=== PATIENT | female | born 1955 | race Caucasian/White ===

== ENCOUNTER 2020-06-08 10:18 | Emergency (ER) | payer SELFPAY ==
--- NOTE | 2020-06-08 10:39 | ED.SKABFB ---
HPI - Skin/Abscess/Foreign Bdy General Chief complaint: Skin/Abscess/Foreign Body Stated complaint: left leg ulcer infection Time Seen by Provider: 06/08/20 10:35 Source: patient and RN notes reviewed Mode of arrival: ambulatory Limitations: no limitations History of Present Illness HPI narrative: 65 yo female presents to [facility] care with C/O of a left lower leg chronic ulcer that she states is infected. Has a HX of issues with this site for about 30 years but over the last 2 months has become worse with 2 open area. Increased warmth, redness and drainage. Reports that she is had skin grafts that were rejected, and in the hyperbaric chamber. Has moved here in the last couple of years from [facility]. Has not establish care for wound care since arriving here. Dr. Lucas with [facility], primary care provider. Reports that she was referred to vascular however did not follow-up HX of Diabetes and vascular issues. Daughter reports that patient is diabetic and has had issues with venous stasis ulcers in the past Related Data Home Medications Medication Instructions Recorded Confirmed amlodipine 10 mg PO DAILY 06/08/20 06/08/20 escitalopram oxalate 20 mg PO DAILY 06/08/20 06/08/20 glipizide 10 mg PO BID 06/08/20 06/08/20 lansoprazole 15 mg PO DAILY 06/08/20 06/08/20 propranolol BID 06/08/20 simvastatin 40 mg PO DAILY 06/08/20 06/08/20 triamterene-hydrochlorothiazid 1 cap PO DAILY 06/08/20 06/08/20 warfarin 6 mg PO DAILY 06/08/20 06/08/20 Allergies Allergy/AdvReac Type Severity Reaction Status Date / Time adhesive tape Allergy Intermediate BLISTERS Verified 06/08/20 10:48 latex Allergy Intermediate RASH Verified 06/08/20 10:48 Penicillins Allergy Intermediate RASH Verified 06/08/20 10:48 feathers Allergy Mild SWELLING Verified 06/08/20 10:48 paraben Allergy Unknown Unknown Verified 06/08/20 10:48 ANTIBIOTIC OINTMENT Allergy Intermediate BLISTERS Uncoded 06/08/20 10:48 PRESERVATIVES Allergy Mild RASH Uncoded 06/08/20 10:48 Review of Systems Review of Systems: Narrative: CONSTITUTIONAL: Denies fever, chills, or sweats. CARDIOVASCULAR: Denies chest pain, palpitations, or edema. RESPIRATORY: Denies cough or dyspnea. GASTROINTESTINAL: Denies abdominal pain, nausea, vomiting, or diarrhea. GENITOURINARY: Denies dysuria or hematuria. SKIN: Denies rash or itching. Red, increased warmth to the left medial aspect lower leg. MUSCULOSKELETAL: Denies back pain, or myalgia. Left medial aspect ankle pain. NEUROLOGIC: Denies headache, numbness, or weakness. PSYCHIATRIC: Denies anxiety or depression. All other systems reviewed are negative, except as documented in HPI. [facility] Past Medical History Medical History (Updated 06/08/20 @ 11:50 by Quita Mg) Diabetes High cholesterol Skin graft (allograft) (autograft) failure Venous stasis ulcers Comments At the time of my signature, I reviewed and agree with the nursing past medical, surgical, social, and family history. There is no relevant family history pertinent to the patient complaint. Exam Narrative: Exam Narrative: GENERAL: This is a well-nourished, well-developed patient, in no apparent distress. Patient with memory problems, poor historian. HEAD: normocephalic, atraumatic. NECK: Neck supple, non-tender without lymphadenopathy, masses or thyromegaly. CARDIOVASCULAR: Regular rate and rhythm without murmurs, gallops, or rubs. RESPIRATORY: Clear to auscultation. Breath sounds equal bilaterally. No wheezes, rales, or rhonchi. GASTROINTESTINAL: Abdomen soft, non-tender, nondistended. SKIN: warm. Redness extends 16 x 10 cm. To open areas with exudate. NEURO: awake, alert, and oriented to person, place and time. There were no obvious focal neurologic abnormalities. EXTREMITIES: No clubbing, cyanosis, or edema. Tenderness to the ankle. 16 x 10 area left ankle. Infection noted. Hot to touch. Pulse and pedal +1. Patient reports sensation al
[2020-06-08 10:48] VITALS: BP 136/75; PULSE 67; RESP 18; TEMP 37.1; O2SAT 97
[2020-06-08 10:48] LABS: Glucose Point of Care 163 (65-105)
== END 2020-06-08 11:30 | disposition short-term general hospital (02) ==
PROVIDERS: Emergency Provider Nurse Practitioner; PCP Family Medicine
DX: I83.023 Varicose veins of left lower extremity with ulcer of ankle (principal); L97.329 Non-pressure chronic ulcer of left ankle with unspecified severity; E11.622 Type 2 diabetes mellitus with other skin ulcer; Z79.84 Long term (current) use of oral hypoglycemic drugs; L03.116 Cellulitis of left lower limb; E78.00 Pure hypercholesterolemia, unspecified
CPT/HCPCS: 82948; 99213; G0463

== ENCOUNTER 2021-09-23 13:08 | Outpatient (CLI) | payer OTHER, SELFPAY ==
--- NOTE | ~2021-09-23 | US_ITS ---
EXAMINATION: US arterial duplex LE DATE: 09/23/2021 15:22 INDICATION: Peripheral vascular disease, unspecified TECHNIQUE: Multiple grayscale and Doppler ultrasound images of the arteries of the bilateral lower li mbs were obtained. COMPARISON: None FINDINGS: Small amount of atherosclerotic plaque without evident hemodynamically significant stenosis on graysc gianna imaging throughout the arteries of the right lower limb. There are triphasic waveforms with brisk systolic upstrokes throughout the arteries of the right lower limb. Peak systolic velocities range f rom 183 cm/s at the right common femoral artery and from 139-108 cm/s throughout the remaining arteri es of the right lower limb. Small amount of nonhemodynamically significant atherosclerotic plaque scattered throughout the arteri es of the left lower limb. Peak systolic velocities range from 184 cm/s at the proximal left superfic ial femoral artery to 63 cm/s at the left dorsalis pedis artery. Biphasic waveforms at the left dorsa lis pedis artery with triphasic waveforms of all the more proximal arteries in the left lower limb wi th brisk systolic upstrokes throughout. IMPRESSION: 1. Small amount of nonhemodynamically significant atherosclerotic plaque scattered throughout the art eries of the bilateral lower limbs with brisk systolic upstrokes and biphasic waveforms at the left d orsalis pedis artery and triphasic waveforms throughout the remaining arteries of the bilateral lower limbs. Reviewed, dictated and finalized at location B. IMPRESSION: 1. Small amount of nonhemodynamically significant atherosclerotic plaque scatte red throughout the arteries of the bilateral lower limbs with brisk systolic up strokes and biphasic waveforms at the left dorsalis pedis artery and triphasic waveforms throughout the remaining arteries of the bilateral lower limbs.
--- NOTE | ~2021-09-23 | US_ITS ---
EXAMINATION: US thyroid DATE: 09/23/2021 15:21 INDICATION: Nontoxic goiter, unspecified. TECHNIQUE: Multiple ultrasound images of the thyroid were obtained. COMPARISON: None. FINDINGS: The thyroid is normal in size. Vascularity is normal. In the right thyroid lobe, there is a 14 mm femi id, hypoechoic, [id number] nodule with smooth margin without echogenic foci (TI-RADS TR4). IMPRESSION: 1. Thyroid nodule. Thyroid ultrasound is recommended in one year. Reviewed, dictated and finalized at location A.
== END 2021-09-23 13:09 | disposition home or self-care (01) ==
PROVIDERS: PCP Emergency Medicine; Visit Provider Emergency Medicine
DX: I73.9 Peripheral vascular disease, unspecified (principal); E04.9 Nontoxic goiter, unspecified
CPT/HCPCS: 76536; 93925

== ENCOUNTER 2021-10-28 08:03 | Outpatient (CLI) | payer OTHER, SELFPAY ==
--- NOTE | ~2021-10-28 | XR_ITS ---
MODIFIED ESOPHAGRAM HISTORY: Dysphagia. TECHNIQUE: Modified barium esophagram was performed on 10/28/2021. I administered fluoroscopy and perf ormed the exam with speech pathologist. Patient was seated for lateral fluoroscopic imaging for darryl stion of thin liquids, pudding, solids and quantified amounts, followed by thin liquids in uncontroll ed amounts. This was recorded on tape. A single fluoroscopic spot image was also recorded. The DAP fo r this procedure was [id number] Gycm2. The amount of fluoroscopy time used during this procedure w as minutes. FINDINGS: Oral stage: Adequate function. Pharyngeal stage: There is intermittent laryngeal penetration without aspiration and which elicited a cough reflex. Cervical/esophageal stage: Adequate function. IMPRESSION: Intermittent laryngeal penetration without aspiration. Please correlate with speech path ologist findings and specific feeding recommendations. Reviewed, dictated and finalized at location A. IMPRESSION: Intermittent laryngeal penetration without aspiration. Please jorge elate with speech pathologist findings and specific feeding recommendations.
--- NOTE | 2021-10-28 16:03 | STOPEVAL ---
MODIFIED BARIUM SWALLOW EVALAUTATION: Thank you for referring Anahi Vazquez to [facility]. Attending Provider: Panchito Rosa MD FAX: [phone] Modified Barium Swallow Evaluation Recent Swallowing History Reports Dysphagia Yes: pills and raw vegetables get stuck; I cough a lot History of Dysphagia No Other Factors Impacting Dysphagia None History of Pneumonia No Reported Difficult Consistencies Pills,Solids Intake Method Prior to Swallow Oral Evaluation Diet Prior to Swallow Evaluation Regular, Level 7 Liquid Consistency Prior to Swallow Thin (0) Evaluation Consistency Barium Pill Other Amount with cup drinking water Oral Preparatory Symptoms Within Functional Limits Oral Phase Symptoms Within Functional Limits Pharyngeal Phase Comments pill briefly caught within pharynx but with liquid wash was easily cleared Cervical/Esophageal Symptoms None Solid Consistency Method of Presentation Spoon Oral Preparatory Symptoms None Oral Phase Symptoms None Pharyngeal Phase Symptoms Within Functional Limits Severity of Vallecular Residue Trace - 1-5 % Trace Coating of the Mucosa Severity of Pyriform Sinus Residue None - 0% No Residue 8 Point Laryngeal Penetration-Aspiration Material Does Not Enter Airway Scale Pharyngeal Phase Comments pt independently dry swallows and clears any pharyngeal residual: functional swallow. Cervical/Esophageal Symptoms None Mixed Consistency Method of Presentation Spoon Oral Preparatory Symptoms None Oral Phase Symptoms None Pharyngeal Phase Symptoms None Severity of Vallecular Residue None - 0% No Residue Severity of Pyriform Sinus Residue None - 0% No Residue Pureed Consistency Method of Presentation Spoon Oral Preparatory Symptoms None Oral Phase Symptoms None Pharyngeal Phase Symptoms Within Functional Limits, Reduced Lingual Pressure Severity of Vallecular Residue Trace - 1-5 % Trace Coating of the Mucosa Severity of Pyriform Sinus Residue None - 0% No Residue 8 Point Laryngeal Penetration-Aspiration Material Does Not Enter Airway Scale Pharyngeal Phase Comments pt independently dry swallows and clears any pharyngeal residual: functional swallow. Cervical/Esophageal Symptoms None Thin Uncontrolled 2 Method of Presentation Spoon Oral Preparatory Symptoms None Oral Phase Symptoms None Pharyngeal Phase Symptoms Within Functional Limits Severity of
== END 2021-10-28 08:04 | disposition home or self-care (01) ==
PROVIDERS: PCP Emergency Medicine; Visit Provider Emergency Medicine
DX: T17.308A Unspecified foreign body in larynx causing other injury, initial encounter (principal)
CPT/HCPCS: 92611

== ENCOUNTER 2022-05-03 09:51 | Observation (INO) | payer OTHER, SELFPAY ==
[2022-05-03] VITALS (19 sets, daily range): BP systolic 118–190; BP diastolic 52–158; PULSE 105–128; RESP 19–29; TEMP 36.4–37.3; O2SAT 95–99; BMI 28.8
--- NOTE | ~2022-05-03 | XR_ITS ---
EXAMINATION: XR chest 1V portable DATE: 05/03/2022 10:52 INDICATION: Shortness of breath. Nausea and vomiting. Generalized chest pain. TECHNIQUE: A single frontal view of the chest was obtained. COMPARISON: Chest 2 views 03/10/2017 FINDINGS: There is mild atelectasis at the lung bases. No pleural effusion or pneumothorax. The heart size is normal. IMPRESSION: 1. Mild atelectasis at the lung bases. Reviewed, dictated and finalized at location A. TENDER
--- NOTE | ~2022-05-03 | CT_ITS ---
EXAMINATION: CTA chest abdomen pelvis DATE: 05/03/2022 11:51 INDICATION: Chest pain radiating to the arm and neck. TECHNIQUE: Computed tomographic angiography (CTA) of the chest, abdomen, and pelvis was performed wit h 100 mL Omnipaque-350 intravenous contrast. Automated exposure control and iterative reconstruction technique were employed. The dose-length product was 1096.51 mGy-cm. Maximum intensity projection 3D- reconstructions of the aorta and other arteries were constructed by the technologist on a separate wo rkstation. COMPARISON: None. FINDINGS: CHEST CTA: There is mild scarring at the lung apices. There is mild dependent atelectasis bilaterally. There are airspace and groundglass opacities in mediobasal and posterobasal segments of right lower lobe, cons istent with pneumonia. No pleural effusion. The heart size is normal. There are coronary artery calci fications. No pericardial effusion. There are bilateral breast implants. There is no pulmonary embolu s. There is mild aortic atherosclerosis. No aneurysm or dissection. There is mild thoracic spondylosi s. ABDOMEN AND PELVIS CTA: The liver, gallbladder, spleen, pancreas, adrenal glands, and right kidney are normal. There is a 2.0 cm cyst in left kidney. There is diverticulosis of the colon without evidence of diverticulitis. The re are no dilated loops of bowel. The appendix is normal. There is aortic atherosclerosis. No aneurys m or dissection. There is no significant stenosis of celiac axis, superior mesenteric artery, or the renal arteries. There are no pathologically enlarged lymph nodes. There is no free intraperitoneal fl uid. There is moderate lumbar spondylosis. IMPRESSION: 1. Aortic atherosclerosis. No aneurysm or dissection. 2. Right lower lobe pneumonia. Reviewed, dictated and finalized at location A. ER DIE CUTTING MACHINE OPERATOR
--- NOTE | 2022-05-03 09:52 | ECG_ITS ---
Measurements Intervals [place] Rate: 119 P: 68 AR: 136 QRS: -40 QRSD: 90 T: 17 QT: 359 QTc: 507 Interpretive Statements SINUS TACHYCARDIA LEFT AXIS DEVIATION POSSIBLE LEFT ATRIAL ENLARGEMENT INCOMPLETE RIGHT BUNDLE BRANCH BLOCK BORDERLINE R WAVE PROGRESSION, ANTERIOR LEADS BORDERLINE ST ABNORMALITY- DIFFUSE LEADS BASELINE WANDER- III, AVF ABNORMAL ECG NO PREVIOUS ECG AVAILABLE FOR COMPARISON Electronically Signed On 05-04-2022 7:28:46 [employer] by Terry Humphreys D.O.
[2022-05-03] MEDS: ASPIRIN 81 MG CHEWABLE TABLET 324 MG PO (10:41)
--- NOTE | 2022-05-03 10:41 | ECG_ITS ---
Measurements Intervals [place] Rate: 120 P: 72 IN: 147 QRS: -9 QRSD: 85 T: 32 QT: 332 QTc: 469 Interpretive Statements SINUS TACHYCARDIA INCOMPLETE RIGHT BUNDLE BRANCH BLOCK LOW QRS VOLTAGE IN PRECORDIAL LEADS BORDERLINE R WAVE PROGRESSION, ANTERIOR LEADS BORDERLINE ST-T WAVE ABNORMALITY- DIFFUSE LEADS BASELINE ARTIFACT- I, II, III, AVR, AVL, V1 ABNORMAL ECG COMPARED TO ECG 05/03/2022 09:57:09 NO SIGNIFICANT CHANGES Electronically Signed On 05-04-2022 15:15:53 B[employer]K HOUSE WORKER by Terry Humphreys D.O.
[2022-05-03 10:51] LABS: Influenza A QL RT-PCR Negative (Negative); Influenza B QL RT-PCR Negative (Negative); RSV RNA, RT-PCR Negative (Negative); SARS-CoV-2 RNA PCR Negative
[2022-05-03 11:04] LABS: Basophils Absolute Auto 0.1 K/mm3 (0.0-0.1); Basophils Percent Auto 0.4 % (0.2-1.2); Eosinophils Percent Auto 0.1 % (0-4.4); Hematocrit 42.4 % (37.0-47.0); Hemoglobin 14.7 g/dL (12.0-15.0); Immature Granulocyte Absolute 0.12 K/mm3 (0.00-0.031); Immature Granulocyte Percent A 0.7 % (0-0.5); Lymphocytes Absolute Auto 1.22 K/mm3 (0.9-3.2); Lymphocytes Percent Auto 7.4 % (18.3-44.2); Mean Corpuscular HGB Conc 34.7 g/dl (32-36); Mean Corpuscular Hemoglobin 31.3 pg (26-34); Mean Corpuscular Volume 90.2 fl (80-100); Mean Platelet Volume 10.3 fl (7.4-10.4); Monocytes Absolute Auto 0.8 K/mm3 (0.1-0.6); Monocytes Percent Auto 4.9 % (2.6-8.5); Neutrophils Absolute Auto 14.3 K/mm3 (1.3-6.7); Neutrophils Percent Auto 86.5 % (45.5-73.1); Platelet Count Result 218 k/mm3 (150-375); Red Cell Distribution Width 12.2 % (11.5-14.5); White Blood Count 16.5 K/mm3 (4.5-10.0)
--- NOTE | 2022-05-03 11:05 | ED.GENADULT ---
HPI - General Adult General Chief complaint: Shortness of Breath/Dyspnea Stated complaint: right shoulder pain. SOB Time Seen by Provider: 05/03/22 10:22 History of Present Illness HPI narrative: This is a 67-year-old female presenting ED with chief complaint of pain going to her right shoulder and neck. Started yesterday at 9:00 a.m. and is an achy pain, has 6 7 out 10 intensity and constant. Says she has experienced this before when she has had pneumonia. It is worse with deep breaths. There are no alleviating factors. It is associated with diaphoresis and nausea. She denies fever chills or productive cough. Patient denies sick contacts at home this vaccinated against COVID and flu. Patient has history of [place] in her 40s. She denies numbness tingling or weakness to any extremity. Related Data Home Medications Medication Instructions Recorded Confirmed lansoprazole 15 mg capsule,delayed 15 mg PO DAILY 06/08/20 06/08/20 release propranolol 60 mg tablet BID 06/08/20 simvastatin 40 mg tablet 40 mg PO DAILY 06/08/20 06/08/20 pioglitazone 45 mg tablet (Actos) 45 mg PO DAILY 09/09/21 Allergies Allergy/AdvReac Type Severity Reaction Status Date / Time adhesive tape Allergy Intermediate BLISTERS Verified 05/03/22 10:00 latex Allergy Intermediate RASH Verified 05/03/22 10:00 Penicillins Allergy Intermediate RASH Verified 05/03/22 10:00 feathers Allergy Mild SWELLING Verified 05/03/22 10:00 paraben Allergy Unknown Unknown Verified 05/03/22 10:00 ANTIBIOTIC OINTMENT Allergy Intermediate BLISTERS Uncoded 05/03/22 10:00 PRESERVATIVES Allergy Mild RASH Uncoded 05/03/22 10:00 Review of Systems Review of Systems: CONSTITUTIONAL: Denies night sweats. EYES: No eye pain ENT: Denies rhinorrhea CARDIOVASCULAR: Denies palpitations RESPIRATORY: Denies hemoptysis GASTROINTESTINAL: Denies hematemesis GENITOURINARY: Denies hematuria. SKIN: Denies rash MUSCULOSKELETAL: Denies myalgia. NEUROLOGIC: Denies weakness. PSYCHIATRIC: Denies delusions PMFSH Past Medical History Medical History Diabetes High cholesterol History of hyperbaric oxygen therapy (~1989) Skin graft (allograft) (autograft) failure Venous stasis ulcers Surgical History Surgical History H/O: hysterectomy (~1979) History of skin graft Several skin grafts between 9423-6319 History of tubal ligation (~1976) Family History Family History Father , 91 Diabetes mellitus DVT (deep venous thrombosis) Heart problem Mother , 87 Heart problem Alzheimer disease Brain bleed Sibling , 58 Heart attack Social History Social History (Updated 05/03/22 @ 12:57 by Halie Mora NP) Social History: Patient drinks 4 cups of caffeine daily. 2 c self wid wm Smoking packs per day: 0.5 Smoking cigarettes per day: 10.0 Years smoked: 49 Smoking pack-years: 24.50 Smoking status: Current every day smoker Tobacco type: cigarettes Second hand tobacco smoke exposure: Yes Alcohol intake: current Drinks per week: 1 Alcohol use details: Patient drinks 1 glass of wine per month Substance use: never Substance use type: does not use Additional living arrangements comments: Patient is Gender identity (if verbalized by the patient): Female Exam Narrative: APPEARANCE: Patient appears uncomfortable Head: atraumatic. EYES: EOMI, NOSE: Atraumatic NECK: Trachea midline RESPIRATORY: tachypneic, clear to auscultation bilaterally CARDIOVASCULAR: tachycardic, pulses intact in all extremities, no peripheral edema ABDOMINAL: Non-distended MUSCULOSKELETAl: No obvious deformities NEURO: Alert. Moving 4/4 extremities SKIN:: Warm, dry. Normal color PSYCHIATRIC: Normal affect Course Vital Signs Vital signs: Vital Signs Temperature 99.1
[2022-05-03 11:13] LABS: Lactic Acid Reflex 1.8 mmol/L (0.7-2.0); Partial Thromboplastin Time 25.7 SECONDS (22.3-36.8)
[2022-05-03 11:14] LABS: Prothrombin Time 12.4 Seconds (11.1-14.7)
[2022-05-03 11:15] LABS: Alanine Aminotransferase 25 U/L (6-35); Albumin Level 4.7 g/dL (3.5-5.1); Alkaline Phosphatase 88 U/L (38-126); Anion Gap 9 mmol/L (8-16); Aspartate Amino Transferase 26 U/L (14-36); Bilirubin,Total 0.7 mg/dL (0.2-1.3); Blood Urea Nitrogen 12 mg/dL (7-17); Calcium 9.1 mg/dL (8.4-10.2); Carbon Dioxide 30 mmol/L (22-30); Chloride 96 mmol/L (98-107); Estimated CRCL calculation 64 ml/min; Estimated Glomerular Filt Rate > 60; Glucose 188 mg/dL (65-110); Lipase 59 U/L (23-300); Magnesium 1.6 mg/dL (1.6-2.3); Sodium 135 mmol/L (137-145)
[2022-05-03 11:24] LABS: NT Pro B Type Natriuretic Pept 330 pg/mL (5-100)
[2022-05-03 11:26] LABS: Troponin I < 0.012 ng/mL (0.000-0.034)
[2022-05-03 11:27] LABS: D Dimer 0.52 ug/mL (<0.48); Troponin I < 0.012 ng/mL (0.000-0.034)
[2022-05-03] MEDS: SODIUM CHLORIDE 0.9% IV 1,000 ML 999 ML IV CONT (12:48)
--- NOTE | 2022-05-03 12:54 | PM.IMHP ---
H&P: HPI History of Present Illness Date/Time: 05/03/22 12:54 Chief Complaint: Shortness of breath Narrative: This is a 67-year-old female patient who has a history of hypertension, hyperlipidemia and diabetes. She presented to the emergency room with complaints of pain that goes her right shoulder and neck. The pain started around 9:00 a.m. yesterday. Her pain was 7/10. The pain is worse with deep breaths. This is the same type of pain that she experienced when she had pneumonia. She denied any fever chills. No numbness and tingling. She does have a history of having coronary artery disease with a ID in her 40s. White count 16.5. Potassium is low at 3.0. Blood sugar 196. Last hemoglobin A1c was 01/10/2022 at 6.9. Urinalysis was negative. Influenza A/B and COVID are negative as well as RSV. CT of the abdomen and chest and pelvis was read as aortic atherosclerosis. No aneurysm or dissection. Right lower lobe pneumonia. The patient was given [place] for the pain. She was given IV fluids, aspirin, Rocephin, and azithromycin. The patient is being admitted to observation status on the date of service of 05/03/2022. Review of Systems Review of Systems: See HPI All systems reviewed & are unremarkable except as noted in HPI and below Constitutional: Constitutional: Reports as per HPI and Reports no additional constitutional complaints Eyes: Eyes: Reports as per HPI and Reports no additional eye complaints ENT: Reports system reviewed and no additional complaints, except as documented and Reports Normal hearing present Cardiovascular: Cardiovascular: Reports no additional cardiovascular complaints Respiratory: Respiratory: Reports no additional respiratory complaints and Reports no additional respiratory complaints Gastrointestinal: Gastrointestinal: Reports as per HPI and Reports no additional gastrointestinal complaints Musculoskeletal: Musculoskeletal: Reports no additional musculoskeletal complaints Integumentary/Breasts: Skin/Breast: Reports system reviewed and no additional complaints, except as docu and Reports as per HPI Neurologic: Reports system reviewed and no additional complaints, except as documented, Reports as per HPI and Reports Normal hearing present Psychiatric: Psychiatric: Reports no additional psychiatric complaints and Reports as per HPI Endocrine: Endocrine: Reports no additional endocrine complaints Hematologic/Lymphatic: Hematologic/Lymphatic: Reports no additional hematologic/lymphatic complaints Allergic/Immunologic: Allergic/Immunologic: Reports no additional allergic/immunologic complaints [facility] Past Medical History Medical History (Updated 05/03/22 @ 18:06 by Halie Mora NP) Diabetes High cholesterol History of DVT (deep vein thrombosis) History of hyperbaric oxygen therapy (~1989) Skin graft (allograft) (autograft) failure Venous stasis ulcers Surgical History Surgical History H/O: hysterectomy (~1979) History of skin graft Several skin grafts between 2805-3278 History of tubal ligation (~1976) Family History Family History Father , 91 Diabetes mellitus DVT (deep venous thrombosis) Heart problem Mother , 87 Heart problem Alzheimer disease Brain bleed Sibling , 58 Heart attack Social History Social History (Updated 05/03/22 @ 18:16 by Halie Mora NP) Social History: The patient lives home by herself she is . She has 2 children. Patient drinks 4 cups of caffeine daily. She is retired from [employer]. Her daughter is the durable power deputy prosecuting attorney for healthcare. Code status full code Smoking packs per day: 0.5 Smoking cigarettes per day: 10.0 Years smoked: 49 Smoking pack-years: 24.50 Smoking status: Current every day smoker Tobacco type: cigarettes Second hand tobacco smoke exposure: Yes
[2022-05-03] MEDS: ONDANSETRON INJ 4 MG/2 ML VIAL IV PUSH (13:25)
[2022-05-03] MEDS: hydrALAZINE HCL 20 MG/ML VIAL 10 MG IV PUSH (13:25)
[2022-05-03] MEDS: fentaNYL CITRATE INJ (*CRX) 100 MCG/2 ML VIAL 25 MCG IV PUSH (13:26)
[2022-05-03 13:37] LABS: Add Urine Microscopic? YES; Appearance Urine Clear (Clear); Bilirubin Urine Negative (Negative); Blood Urine Trace-Intact (Negative); Color Urine Yellow (Yellow); Glucose Urine UA Negative (Negative); Ketones Urine Negative (Negative); Leukocyte Esterase Ur Negative LEU/UL (Negative); Nitrate Urine Negative (Negative); Protein Urine Negative (Negative); Specific Grav Ur <= 1.005 (1.001-1.035); Urobilinogen Urine 0.2 mg/dL (<2.0); pH Urine 5.5 (5.0-9.0)
[2022-05-03 13:52] LABS: Mucus Urine Rare /lpf; RBC Urine 0-2 /hpf (0-2); Squamous Epithelial Cell Urine Occasional /hpf (Few); WBC Urine 0-3 /hpf
[2022-05-03 14:13] LABS: Glucose Point of Care 196 mg/dl (65-105)
[2022-05-03] MEDS: SODIUM CHLORIDE 0.9% IV 2,000 ML 999 ML IV CONT (14:22)
--- NOTE | 2022-05-03 15:46 | PC.NURSE ---
This patient, Anahi Vazquez, was admitted to Medical Room 343-01. Patient/family oriented to hospital policies and general routines including ID bracelet, bed and alarms, visiting hours, pain management, procedures, bathroom and other care routines, personal items, smoking policy, room service/diet, and visiting hours. Information on how to activate the Rapid Response Team has been discussed. Patient/Family are encouraged to report perceived risks to care and to ask questions if they do not understand what they are told or what they should do.
[2022-05-03] MEDS: HYDROcodone/acetaminophen (*CRX) 5-325 MG TABLET 1 TAB PO ×2 (17:08→21:36)
[2022-05-03] MEDS: POTASSIUM CHLORIDE 20 MEQ TABLET 40 MEQ PO (17:10)
[2022-05-03] MEDS: glipiZIDE 5 MG TABLET 10 MG PO (19:28)
[2022-05-03] MEDS: SODIUM CHLORIDE 0.9% IV 1,000 ML 100 ML IV CONT (19:28)
[2022-05-03] MEDS: APIXABAN 2.5 MG TABLET PO (19:28)
[2022-05-03] MEDS: IPRATROPIUM BR 0.02% INH SOLN 0.5 MG/2.5 ML VIAL INHALATION (20:09)
[2022-05-03] MEDS: ALBUTEROL SULFATE NEB 2.5 MG/3 ML INH INHALATION (20:09)
[2022-05-03] MEDS: PROPRANOLOL HCL 60 MG CAPSULE CR PO (21:37)
[2022-05-03 21:45] LABS: Glucose Point of Care 151 mg/dl (65-105)
[2022-05-04] VITALS (21 sets, daily range): BP systolic 98–117; BP diastolic 54–59; PULSE 66–110; RESP 18–20; TEMP 36.6–37.2; O2SAT 86–93
[2022-05-04] MEDS: IPRATROPIUM BR 0.02% INH SOLN 0.5 MG/2.5 ML VIAL INHALATION ×4 (02:15→20:16)
[2022-05-04] MEDS: ALBUTEROL SULFATE NEB 2.5 MG/3 ML INH INHALATION ×4 (02:15→20:16)
[2022-05-04] MEDS: HYDROcodone/acetaminophen (*CRX) 7.5-325 MG TABLET 1 TAB PO ×4 (04:54→22:21)
[2022-05-04] MEDS: SODIUM CHLORIDE 0.9% IV 1,000 ML 100 ML IV CONT ×2 (04:55→17:04)
[2022-05-04 06:20] LABS: Basophils Percent Auto 0.2 % (0.2-1.2); Eosinophils Percent Auto 0.1 % (0-4.4); Hematocrit 31.6 % (37.0-47.0); Hemoglobin 10.7 g/dL (12.0-15.0); Immature Granulocyte Absolute 0.13 K/mm3 (0.00-0.031); Immature Granulocyte Percent A 0.7 % (0-0.5); Lymphocytes Absolute Auto 2.78 K/mm3 (0.9-3.2); Lymphocytes Percent Auto 15.5 % (18.3-44.2); Mean Corpuscular HGB Conc 33.9 g/dl (32-36); Mean Corpuscular Hemoglobin 30.7 pg (26-34); Mean Corpuscular Volume 90.8 fl (80-100); Mean Platelet Volume 11.1 fl (7.4-10.4); Monocytes Absolute Auto 1.1 K/mm3 (0.1-0.6); Monocytes Percent Auto 6.1 % (2.6-8.5); Neutrophils Absolute Auto 13.9 K/mm3 (1.3-6.7); Neutrophils Percent Auto 77.4 % (45.5-73.1); Platelet Count Result 172 k/mm3 (150-375); Red Blood Count 3.48 M/mm3 (4.2-5.4); Red Cell Distribution Width 12.5 % (11.5-14.5); White Blood Count 17.9 K/mm3 (4.5-10.0)
[2022-05-04 06:28] LABS: Lactic Acid Reflex 0.8 mmol/L (0.7-2.0)
[2022-05-04 06:37] LABS: Alanine Aminotransferase 16 U/L (6-35); Albumin Level 3.1 g/dL (3.5-5.1); Alkaline Phosphatase 66 U/L (38-126); Anion Gap 6 mmol/L (8-16); Aspartate Amino Transferase 18 U/L (14-36); Bilirubin,Total 0.6 mg/dL (0.2-1.3); Blood Urea Nitrogen 9 mg/dL (7-17); Calcium 7.4 mg/dL (8.4-10.2); Carbon Dioxide 27 mmol/L (22-30); Chloride 102 mmol/L (98-107); Estimated CRCL calculation 81 ml/min; Estimated Glomerular Filt Rate > 60; Glucose 115 mg/dL (65-110); Magnesium 1.6 mg/dL (1.6-2.3); Potassium 2.6 mmol/L (3.4-5.0); Sodium 135 mmol/L (137-145)
[2022-05-04 06:46] LABS: CRP 20.8 mg/dL (<1.0)
[2022-05-04] MEDS: POTASSIUM CHLORIDE 20 MEQ PACKET (FOR LIQUID) 40 MEQ PO (07:05)
[2022-05-04 08:43] LABS: Glucose Point of Care 131 mg/dl (65-105)
[2022-05-04] MEDS: PANTOPRAZOLE 40 MG TABLET PO (09:39)
[2022-05-04] MEDS: PIOGLITAZONE HCL 45 MG TABLET PO (09:39)
[2022-05-04] MEDS: amLODIPine BESYLATE 5 MG TABLET 10 MG PO (09:39)
[2022-05-04] MEDS: DESVENLAFAXINE SUCCINATE 50 MG TAB.ER.24H 100 MG PO (09:39)
[2022-05-04] MEDS: SIMVASTATIN 20 MG TABLET 40 MG PO (09:39)
[2022-05-04] MEDS: glipiZIDE 5 MG TABLET 10 MG PO ×2 (09:40→17:05)
[2022-05-04] MEDS: PROPRANOLOL HCL 60 MG CAPSULE CR PO ×2 (09:40→20:51)
[2022-05-04] MEDS: APIXABAN 2.5 MG TABLET PO ×2 (09:40→17:05)
[2022-05-04] MEDS: POTASSIUM CHLORIDE 20 MEQ TABLET.ER 40 MEQ PO (11:17)
--- NOTE | 2022-05-04 11:23 | PM.IMPN ---
Progress Note: A&P Assessment and Plan (1) Pneumonia: Code(s): J18.9 - Pneumonia, unspecified organism Status: Acute Assessment and Plan: -the patient has mild leukocytosis white count 16.5. -the patient was started on community-acquired pneumonia antibiotic stewardship with azithromycin and Rocephin. -DuoNebs -tailor antibiotic to blood and sputum cultures results. -continue with IV fluids as patient has tachycardia. (2) History of DVT (deep vein thrombosis): Code(s): Z86.718 - Personal history of other venous thrombosis and embolism Status: Acute Assessment and Plan: -continue with Eliquis (3) Depression: Code(s): F32.A - Depression, unspecified Status: Acute Assessment and Plan: - Pristiq is non formulary and she may use from home. (4) HTN (hypertension): Qualifiers: Hypertension type: primary hypertension Qualified Code(s): I10 - Essential (primary) hypertension Code(s): I10 - Essential (primary) hypertension Status: Acute Assessment and Plan: -I am holding her triamterene and hydrochlorothiazide due to her low potassium. -I did give her a dose of hydralazine in the emergency room. -continue with propranolol -continue with amlodipine (5) HLD (hyperlipidemia): Qualifiers: Hyperlipidemia type: mixed hyperlipidemia Qualified Code(s): E78.2 - Mixed hyperlipidemia Code(s): E78.5 - Hyperlipidemia, unspecified Status: Acute Assessment and Plan: -continue simvastatin (6) Diabetes mellitus: Qualifiers: Diabetes mellitus type: type 2 Diabetes mellitus detention insulin use: without intermediate manager use Diabetes mellitus complication status: with skin complications Diabetes mellitus complication detail: with other skin complication Qualified Code(s): E11.628 - Type 2 diabetes mellitus with other skin complications Code(s): E11.9 - Type 2 diabetes mellitus without complications Status: Acute Assessment and Plan: -rybelsus is non formulary she may use from home -Accu-Cheks AC and HS with sliding scale insulin and hypoglycemic protocol. -last A1c was 6.9. -continue with Actos Subjective Date/time seen: 05/04/22 11:23 Breathing better Exam Const: General: cooperative, healthy appearing, comfortable, no acute distress, well developed, alert, awake, Physically active, average body habitus and well nourished Nutritional Appearance: average body habitus and well nourished Orientation/consciousness: oriented to person, oriented to place, oriented to time and patient oriented x3 Limitations: no limitations HENMT: Head: normal to inspection, No palpable skull fracture present, normocephalic, atraumatic and abrasion Ears: hearing grossly normal bilaterally and external ears normal Face/Nose/Sinus: Normal external nose present and Normal nares present Eyes: General: appearance normal, both eyes and all related structures Alignment and Position: alignment normal Periorbital: periorbital findings normal Eyelids: eyelids normal Sclera: sclerae normal Pupils: Equal, round and reactive pupils present EOM: EOMs intact bilaterally Neck: Neck: normal visual inspection, full ROM, no lymphadenopathy, trachea midline and supple Chest: Chest palpation & inspection: normal inspection of the chest Resp: Effort & Inspection: normal respiratory effort Auscultation: clear to auscultation bilaterally and diminished lung sounds on the right in the lower lung cohen Cardio: Palpation: normal PMI Rate: regular rate and tachycardic Rhythm: regular rhythm Heart sounds: S1 normal heart sound present and S2 normal heart sound present Peripheral pulses: Peripheral pulses 2+ throughout GI: Inspection: normal to inspection Auscultation: normal bowel sounds Rectal Exam: deferred : General: Yes no CVA tenderness Back/Spine/Pelvis: Back: no CVA tenderness Cervical Spine: cervical ROM normal Thorac
[2022-05-04 12:28] LABS: Potassium 3.1 mmol/L (3.4-5.0)
[2022-05-04 12:39] LABS: Glucose Point of Care 127 mg/dl (65-105)
[2022-05-04 16:37] LABS: Potassium 3.5 mmol/L (3.4-5.0)
[2022-05-04 17:36] LABS: Glucose Point of Care 133 mg/dl (65-105)
[2022-05-04 20:59] LABS: Glucose Point of Care 89 mg/dl (65-105)
[2022-05-05] VITALS (17 sets, daily range): BP systolic 117; BP diastolic 49; PULSE 63–88; RESP 16–22; TEMP 36.6; O2SAT 87–94
[2022-05-05] MEDS: IPRATROPIUM BR 0.02% INH SOLN 0.5 MG/2.5 ML VIAL INHALATION ×3 (01:57→15:50)
[2022-05-05] MEDS: ALBUTEROL SULFATE NEB 2.5 MG/3 ML INH INHALATION ×3 (01:57→15:50)
[2022-05-05] MEDS: SODIUM CHLORIDE 0.9% IV 1,000 ML 100 ML IV CONT (04:20)
[2022-05-05] MEDS: ONDANSETRON INJ 4 MG/2 ML VIAL IV PUSH (04:37)
[2022-05-05] MEDS: HYDROcodone/acetaminophen (*CRX) 7.5-325 MG TABLET 1 TAB PO ×2 (05:30→11:48)
[2022-05-05 06:07] LABS: Anion Gap 3 mmol/L (8-16); Blood Urea Nitrogen 9 mg/dL (7-17); Calcium 7.6 mg/dL (8.4-10.2); Carbon Dioxide 23 mmol/L (22-30); Chloride 103 mmol/L (98-107); Estimated CRCL calculation 93 ml/min; Estimated Glomerular Filt Rate > 60; Glucose 115 mg/dL (65-110); Potassium 3.5 mmol/L (3.4-5.0); Sodium 129 mmol/L (137-145)
[2022-05-05] MEDS: APIXABAN 2.5 MG TABLET PO (08:27)
[2022-05-05] MEDS: PANTOPRAZOLE 40 MG TABLET PO (08:27)
[2022-05-05] MEDS: glipiZIDE 5 MG TABLET 10 MG PO (08:27)
[2022-05-05] MEDS: PROPRANOLOL HCL 60 MG CAPSULE CR PO (08:27)
[2022-05-05] MEDS: amLODIPine BESYLATE 5 MG TABLET 10 MG PO (08:27)
[2022-05-05] MEDS: SIMVASTATIN 20 MG TABLET 40 MG PO (08:27)
[2022-05-05] MEDS: PIOGLITAZONE HCL 45 MG TABLET PO (08:27)
[2022-05-05] MEDS: DESVENLAFAXINE SUCCINATE 50 MG TAB.ER.24H 100 MG PO (08:27)
[2022-05-05] MEDS: POTASSIUM CHLORIDE 20 MEQ TABLET.ER 40 MEQ PO (08:27)
[2022-05-05 08:41] LABS: Glucose Point of Care 137 mg/dl (65-105)
[2022-05-05 08:51] LABS: Basophils Absolute Auto 0.1 K/mm3 (0.0-0.1); Basophils Percent Auto 0.5 % (0.2-1.2); Eosinophils Absolute Auto 0.1 K/mm3 (0-0.3); Eosinophils Percent Auto 1.1 % (0-4.4); Hematocrit 34.6 % (37.0-47.0); Hemoglobin 10.5 g/dL (12.0-15.0); Immature Granulocyte Absolute 0.09 K/mm3 (0.00-0.031); Immature Granulocyte Percent A 0.9 % (0-0.5); Lymphocytes Absolute Auto 1.96 K/mm3 (0.9-3.2); Lymphocytes Percent Auto 20.4 % (18.3-44.2); Mean Corpuscular HGB Conc 30.3 g/dl (32-36); Mean Corpuscular Hemoglobin 30.9 pg (26-34); Mean Corpuscular Volume 101.8 fl (80-100); Mean Platelet Volume 10.7 fl (7.4-10.4); Monocytes Absolute Auto 0.5 K/mm3 (0.1-0.6); Neutrophils Absolute Auto 6.9 K/mm3 (1.3-6.7); Neutrophils Percent Auto 72.1 % (45.5-73.1); Platelet Count Result 150 k/mm3 (150-375); Red Cell Distribution Width 13.1 % (11.5-14.5); White Blood Count 9.6 K/mm3 (4.5-10.0)
--- NOTE | 2022-05-05 12:36 | PM.DS ---
DS: Admitting Diagnosis Discharge Date May 05, 2022 Admitting Diagnosis Pneumonia DS: Discharge Diagnosis Discharge Diagnosis (1) Pneumonia: Code(s): J18.9 - Pneumonia, unspecified organism Status: Acute Assessment and Plan: -the patient has mild leukocytosis white count 16.5. -the patient was started on community-acquired pneumonia antibiotic stewardship with azithromycin and Rocephin. -DuoNebs -tailor antibiotic to blood and sputum cultures results. -continue with IV fluids as patient has tachycardia. (2) History of DVT (deep vein thrombosis): Code(s): Z86.718 - Personal history of other venous thrombosis and embolism Status: Acute Assessment and Plan: -continue with Eliquis (3) Depression: Code(s): F32.A - Depression, unspecified Status: Acute Assessment and Plan: - Pristiq is non formulary and she may use from home. (4) HTN (hypertension): Qualifiers: Hypertension type: primary hypertension Qualified Code(s): I10 - Essential (primary) hypertension Code(s): I10 - Essential (primary) hypertension Status: Acute Assessment and Plan: -I am holding her triamterene and hydrochlorothiazide due to her low potassium. -I did give her a dose of hydralazine in the emergency room. -continue with propranolol -continue with amlodipine (5) HLD (hyperlipidemia): Qualifiers: Hyperlipidemia type: mixed hyperlipidemia Qualified Code(s): E78.2 - Mixed hyperlipidemia Code(s): E78.5 - Hyperlipidemia, unspecified Status: Acute Assessment and Plan: -continue simvastatin (6) Diabetes mellitus: Qualifiers: Diabetes mellitus type: type 2 Diabetes mellitus intermediate card tender insulin use: without intermediate card tender use Diabetes mellitus complication status: with skin complications Diabetes mellitus complication detail: with other skin complication Qualified Code(s): E11.628 - Type 2 diabetes mellitus with other skin complications Code(s): E11.9 - Type 2 diabetes mellitus without complications Status: Acute Assessment and Plan: -rybelsus is non formulary she may use from home -Accu-Cheks AC and HS with sliding scale insulin and hypoglycemic protocol. -last A1c was 6.9. -continue with Actos DS: Summary Hospital Course Hospital Course: 67-year-old female came out pneumonia. Started IV antibiotics did exceptionally well. Will have her evaluated for home oxygen she likely has some underlying sleep apnea. She is also a smoker. Recommended so smoking cessation. Five more days of oral antibiotics on discharge Time Spent with Patient Time attestation: Total time spent providing and/or coordinating discharge services: Exam Const: General: cooperative, healthy appearing, comfortable, no acute distress, well developed, alert, awake, Physically active, average body habitus and well nourished Nutritional Appearance: average body habitus and well nourished Orientation/consciousness: oriented to person, oriented to place, oriented to time and patient oriented x3 Limitations: no limitations HENMT: Head: normal to inspection, No palpable skull fracture present, normocephalic, atraumatic and abrasion Ears: hearing grossly normal bilaterally and external ears normal Face/Nose/Sinus: Normal external nose present and Normal nares present Eyes: General: appearance normal, both eyes and all related structures Alignment and Position: alignment normal Periorbital: periorbital findings normal Eyelids: eyelids normal Sclera: sclerae normal Pupils: Equal, round and reactive pupils present EOM: EOMs intact bilaterally Neck: Neck: normal visual inspection, full ROM, no lymphadenopathy, trachea midline and supple Chest: Chest palpation & inspection: normal inspection of the chest Resp: Effort & Inspection: normal respiratory effort Auscultation: clear to auscultation bilaterally and diminished lung sounds on the rig
[2022-05-05 13:09] LABS: Glucose Point of Care 126 mg/dl (65-105)
--- NOTE | 2022-05-05 16:05 | PCRCNOTE ---
2lpm o2 with activity needed. set pt up with iv resp care.
--- NOTE | 2022-05-05 16:16 | HOMEO2EVAL ---
Evaluation was performed at [facility] Home Oxygen Evaluation RC: Home Oxygen (O2) Evaluation Start: 05/05/22 12:37 Freq: ONCE Status: Active Protocol: RPE Activity Type Activity Date Activity User E-sign Co-sign Detail Recorded Client Recorded Date Recorded By Document 05/05/22 15:44 MDW [email or web address] 05/05/22 16:16 MDW Document 05/05/22 15:46 MDW [email or web address] 05/05/22 16:16 MDW Document 05/05/22 15:48 MDW [email or web address] 05/05/22 16:16 MDW Document 05/05/22 15:50 MDW [email or web address] 05/05/22 16:16 MDW 05/05/22 05/05/22 05/05/22 15:44 15:46 15:48 Home O2 Evaluation [Oxygen] -Test Phase Resting Exercise Exercise -Oxygen Delivery Room Air Room Air Nasal Cannula -Oxygen Flow Rate (L/min) 1 [Pulse Oximetry] -Pulse Oximetry (90-100 %) 94 87 L 88 L [Pulse Rate] -Pulse Rate (60-100 beats/min) 70 75 78 [Evaluation] -Activity Tolerance Good [Exercise] -Ambulation Distance (feet) -Ambulation Distance (meters) [Comments] -Home Oxygen Evaluation Comments [Charges] -Treatment Charges O2 Evaluation - Inpatient 05/05/22 15:50 Home O2 Evaluation [Oxygen] -Test Phase Exercise -Oxygen Delivery Nasal Cannula -Oxygen Flow Rate (L/min) 2 [Pulse Oximetry] -Pulse Oximetry (90-100 %) 94 [Pulse Rate] -Pulse Rate (60-100 beats/min) 80 [Evaluation] -Activity Tolerance Good [Exercise] -Ambulation Distance (feet) 100 -Ambulation Distance (meters) 30.47 [Comments] -Home Oxygen Evaluation Comments 2L per min with activity [Charges] -Treatment Charges
== END 2022-05-05 16:20 | disposition home or self-care (01) ==
LOC: ANHED 13:20 → ANH3MED 05-04 16:58
PROVIDERS: Nurse Practitioner; Student in an Organized Health Care Education/Training Program; Admitting Provider Internal Medicine; Emergency Provider Emergency Medicine; PCP Emergency Medicine; Visit Provider Chiropractor
DX: J18.9 Pneumonia, unspecified organism (principal); Z86.718 Personal history of other venous thrombosis and embolism; F32.A Depression, unspecified; I10 Essential (primary) hypertension; E11.628 Type 2 diabetes mellitus with other skin complications; E78.5 Hyperlipidemia, unspecified; M25.511 Pain in right shoulder; M54.2 Cervicalgia; R61 Generalized hyperhidrosis; R05.9 Cough, unspecified; I25.2 Old myocardial infarction; D72.829 Elevated white blood cell count, unspecified; R06.09 Other forms of dyspnea; Z20.822 Contact with and (suspected) exposure to COVID-19; E87.6 Hypokalemia; E78.00 Pure hypercholesterolemia, unspecified; J98.11 Atelectasis; R94.31 Abnormal electrocardiogram [ECG] [EKG]; I70.0 Atherosclerosis of aorta; I25.10 Atherosclerotic heart disease of native coronary artery without angina pectoris; F17.210 Nicotine dependence, cigarettes, uncomplicated; F10.90 Alcohol use, unspecified, uncomplicated; Z79.01 Long term (current) use of anticoagulants; Z79.84 Long term (current) use of oral hypoglycemic drugs; Z79.899 Other long term (current) drug therapy; Z83.3 Family history of diabetes mellitus; Z82.49 Family history of ischemic heart disease and other diseases of the circulatory system
CPT/HCPCS: 36415; 71045; 71275; 74174; 80048; 80053; 81001; 82948; 83605; 83690; 83735; 83880; 84132; 84443; 84484; 85025; 85380; 85610; 85730; 86140; 87040; 87070; 87205; 87637; 93005; 94618; 94640; 96365; 96367; 96375; 96376; 99285; A9270; G0378; J0360; J0456; J0696; J2405; J3010; J7030; Q9967

== ENCOUNTER 2022-05-19 19:21 | Inpatient (IN) | payer OTHER, SELFPAY ==
--- NOTE | ~2022-05-19 | CT_ITS ---
Non-contrast Head CT History: Dizziness Technique: Axial non-contrast imaging of the brain was performed. Dose reduction technique was used on this scan by utilizing automated exposure control and iterative reconstruction technique. The dose -length product (DLP) was 605.33 mGy-cm. Findings: There is no evidence of intracranial hemorrhage, mass lesion, or acute infarct. Brain par enchyma appears normal. The ventricles and subarachnoid spaces are normal in size. The calvarium ap pears normal. The visualized paranasal sinuses and mastoid air cells are clear. Impression: No significant abnormality seen. Reviewed, dictated and finalized at location . ON GRADER Impression: No significant abnormality seen.
--- NOTE | ~2022-05-19 | XR_ITS ---
EXAMINATION: XR chest 2V Exam Date/Time: 05/19/2022 20:30 PLACEMENT COORDINATOR HISTORY: RECENTLY TREATED FOR PNEUMONIA, DIZZY, SOB, O2 AT 80% Comparison: 05/03/2022. RESULT: Lines, tubes, and devices: None. Lungs and pleura: Clear. Cardiomediastinal silhouette: Stable. Other: No acute osseous or upper abdominal finding. IMPRESSION: No acute cardiopulmonary process. Reviewed, dictated and finalized at location K. EMENT COORDINATOR
[2022-05-19 19:28] VITALS: BP 117/67; PULSE 103; RESP 16; TEMP 36.3; O2SAT 100
[2022-05-19 19:33] VITALS: BP 94/76; PULSE 111
--- NOTE | 2022-05-19 19:33 | ECG_ITS ---
Measurements Intervals [place] Rate: 100 P: 76 [place]: 124 QRS: 79 QRSD: 89 T: 49 QT: 364 QTc: 471 Interpretive Statements SINUS TACHYCARDIA POSSIBLE LEFT ATRIAL ENLARGEMENT BORDERLINE ST ABNORMALITY- ANTEROLATERAL LEADS BASELINE ARTIFACT- V3 ABNORMAL ECG COMPARED TO ECG 05/03/2022 10:41:25 HEART RATE HAS DECREASED Electronically Signed On 05-19-2022 20:35:16 DIRECTOR INFORMATION SECURITY by Terry Humphreys D.O.
[2022-05-19 19:47] LABS: Basophils Absolute Auto 0.1 K/mm3 (0.0-0.1); Basophils Percent Auto 0.7 % (0.2-1.2); Eosinophils Absolute Auto 0.1 K/mm3 (0-0.3); Eosinophils Percent Auto 0.8 % (0-4.4); Hematocrit 43.2 % (37.0-47.0); Hemoglobin 14.8 g/dL (12.0-15.0); Immature Granulocyte Absolute 0.02 K/mm3 (0.00-0.031); Immature Granulocyte Percent A 0.3 % (0-0.5); Lymphocytes Absolute Auto 2.23 K/mm3 (0.9-3.2); Lymphocytes Percent Auto 30.2 % (18.3-44.2); Mean Corpuscular HGB Conc 34.3 g/dl (32-36); Mean Corpuscular Hemoglobin 30.7 pg (26-34); Mean Corpuscular Volume 89.6 fl (80-100); Mean Platelet Volume 9.9 fl (7.4-10.4); Monocytes Absolute Auto 0.6 K/mm3 (0.1-0.6); Monocytes Percent Auto 8.3 % (2.6-8.5); Neutrophils Absolute Auto 4.4 K/mm3 (1.3-6.7); Neutrophils Percent Auto 59.7 % (45.5-73.1); Platelet Count Result 297 k/mm3 (150-375); Red Blood Count 4.82 M/mm3 (4.2-5.4); Red Cell Distribution Width 11.9 % (11.5-14.5); White Blood Count 7.4 K/mm3 (4.5-10.0)
[2022-05-19 19:58] LABS: Alanine Aminotransferase 17 U/L (6-35); Albumin Level 4.5 g/dL (3.5-5.1); Alkaline Phosphatase 75 U/L (38-126); Anion Gap 12 mmol/L (8-16); Aspartate Amino Transferase 24 U/L (14-36); Bilirubin,Total 0.6 mg/dL (0.2-1.3); Blood Urea Nitrogen 12 mg/dL (7-17); Calcium 9.4 mg/dL (8.4-10.2); Carbon Dioxide 30 mmol/L (22-30); Chloride 88 mmol/L (98-107); Estimated CRCL calculation 40 ml/min; Estimated Glomerular Filt Rate 41; Glucose 116 mg/dL (65-110); Lipase 84 U/L (23-300); Potassium 3.1 mmol/L (3.4-5.0); Sodium 130 mmol/L (137-145)
[2022-05-19 20:00] LABS: INR 1.2; Prothrombin Time 14.3 Seconds (11.1-14.7)
[2022-05-19 20:01] LABS: Partial Thromboplastin Time 29.1 SECONDS (22.3-36.8)
[2022-05-19 20:09] LABS: Troponin I < 0.012 ng/mL (0.000-0.034)
[2022-05-20] VITALS (10 sets, daily range): BP systolic 112–151; BP diastolic 56–86; PULSE 89–107; RESP 14–24; TEMP 35.6–37.2; O2SAT 96–100; BMI 27.8
--- NOTE | 2022-05-20 | ECHO_ITS ---
Patient Info Name: Anahi Vazquez Age: 67 years : 1955 Gender: Female Ht: 69 in Wt: 188 lbs BSA: 2.05 m2 HR: 98 bpm BP: 135 / 58 mmHg Heart Rhythm: Sinus Rhythm Technical Quality: Fair Exam Date: 05/20/2022 1:37 PM Exam Location: [facility] Pulmonary Patient Status: Inpatient Admit Date: 05/20/2022 Staff Ordering Physician: Betzaida Zepeda APRN Radio Journalist: Melia Bah RDCS Attending Provider: Pako Nicole MD Referring Physician: Katelyn MATTSON; Exam Type: CA echo dop bubble study w con Study Info Indications R55 - Syncope and collapse Complete two-dimentional, color flow and Doppler transthoracic echocardiogram is performed with agitated saline and with contrast to opacify the left ventricle and to improve the delineation of the left ventricle endocardial borders. Contrast/Agitated Saline Contrast/Ag. Saline: Agitated Saline Amount: 20.00 ml Administered By: Jt Pool RDCS Existing IV Access: Yes IV Access Condition: patent with no signs of infiltration Contrast/Ag. Saline: Definity Amount: 2.00 ml Administered By: Melia Bah RDCS Existing IV Access: Yes IV Access Condition: patent with no signs of infiltration Summary 1. Left ventricular chamber dimension is normal. 2. Left ventricular systolic function is hyperdynamic, estimated at >70%. 3. There is mildly increased left ventricular wall thickness. 4. The left ventricular diastolic function is grade I diastolic dysfunction. 5. Right ventricular chamber dimension is normal. 6. Right ventricular systolic function is normal. 7. Intact interatrial septum visualized by color flow and agitated saline imaging. Negative bubble study. 8. There is mild tricuspid valve regurgitation. 9. There is small anterior pericardial effusion. Left Ventricle Left ventricular chamber dimension is normal. Left ventricular systolic function is hyperdynamic, estimated at >70%. There is mildly increased left ventricular wall thickness. The left ventricular diastolic function is grade I diastolic dysfunction. Right Ventricle Right ventricular chamber dimension is normal. Right ventricular systolic function is normal. Left Atria Left atrial chamber dimension is normal. Right Atria Right atrial chamber dimension is normal. Atrial Septum Intact interatrial septum visualized by color flow and agitated saline imaging. Negative bubble study. Aortic Valve The aortic valve is probable trileaflet. There is no aortic valve stenosis. There is no aortic valve regurgitation. There is mild aortic valve calcification. Pulmonic Valve The pulmonic valve is not well visualized. Mitral Valve There is no mitral valve stenosis. There is trace mitral valve regurgitation. Tricuspid Valve There is mild tricuspid valve regurgitation. Pericardium/Pleural There is small anterior pericardial effusion. Inferior Vena Cava Normal inferior vena cava with >50% collapse upon inspiration consistent with normal right atrial pressure. Aorta The aortic root size at the sinus of Valsalva is normal. Left Ventricular Outflow Tract Name Value Normal LVOT 2D
[2022-05-20] MEDS: SODIUM CHLORIDE 0.9% IV 1,000 ML 125 ML IV CONT ×2 (01:30→18:00)
[2022-05-20] MEDS: SODIUM CHLORIDE 0.9% IV 1,000 ML 999 ML IV CONT (01:30)
--- NOTE | 2022-05-20 02:28 | ED.GENADULT ---
HPI - General Adult General Chief complaint: Dizziness Stated complaint: dizziness - recent diagnosed with PNA dc on O2 Time Seen by Provider: 05/20/22 00:58 History of Present Illness HPI narrative: Patient is a 67-year-old female who presents to the ER with dizziness. Going on for the last day. Worse with going from sitting to standing. Patient recently admitted for pneumonia and discharged home on 2 L of oxygen. She is supposed to do a 6-minute walk test with pulmonology but cannot get an appointment till September. She reports that she has no new cough or fevers or chills or sweats. She reports poor oral intake over the last 2 weeks since being discharged. She has poor energy. No new medication changes. Related Data Home Medications Medication Instructions Recorded Confirmed lansoprazole 15 mg capsule,delayed 15 mg PO DAILY 06/08/20 05/03/22 release propranolol 60 mg tablet 60 mg PO BID 06/08/20 05/03/22 simvastatin 40 mg tablet 40 mg PO DAILY 06/08/20 05/03/22 pioglitazone 45 mg tablet (Actos) 45 mg PO DAILY 09/09/21 05/03/22 Allergies Allergy/AdvReac Type Severity Reaction Status Date / Time adhesive tape Allergy Intermediate BLISTERS Verified 05/03/22 10:00 latex Allergy Intermediate RASH Verified 05/03/22 10:00 Penicillins Allergy Intermediate RASH Verified 05/03/22 10:00 feathers Allergy Mild SWELLING Verified 05/03/22 10:00 paraben Allergy Unknown Unknown Verified 05/03/22 10:00 ANTIBIOTIC OINTMENT Allergy Intermediate BLISTERS Uncoded 05/03/22 10:00 PRESERVATIVES Allergy Mild RASH Uncoded 05/03/22 10:00 Review of Systems Review of Systems: All systems reviewed & are unremarkable except as noted in HPI and below Constitutional: Constitutional: Denies chills, Reports fatigue and Denies fever(s) Comments: Poor appetite ENT: Denies nasal congestion and Denies sore throat Cardiovascular: Cardiovascular: Denies chest pain, Denies rapid heart rate and Denies radiating jaw, neck or arm pain Respiratory: Respiratory: Denies cough and Denies dyspnea Gastrointestinal: Gastrointestinal: Denies abdominal pain, Denies nausea and Denies vomiting Integumentary/Breasts: Skin/Breast: Denies erythema and Denies rash Neurologic: Reports dizziness PMF Past Medical History Medical History (Updated 05/20/22 @ 03:40 by Rogerio Al MD) Diabetes High cholesterol History of DVT (deep vein thrombosis) History of hyperbaric oxygen therapy (~1989) Skin graft (allograft) (autograft) failure Venous stasis ulcers Surgical History Surgical History H/O: hysterectomy (~1979) History of skin graft Several skin grafts between 6653-9250 History of tubal ligation (~1976) Family History Family History Father , 91 Diabetes mellitus DVT (deep venous thrombosis) Heart problem Mother , 87 Heart problem Alzheimer disease Brain bleed Sibling , 58 Heart attack Social History Social History (Updated 05/03/22 @ 18:16 by Halie Mora NP) Social History: The patient lives home by herself she is . She has 2 children. Patient drinks 4 cups of caffeine daily. She is retired from [employer]. Her daughter is the durable power [place] attorney for healthcare. Code status full code Smoking packs per day: 0.5 Smoking cigarettes per day: 10.0 Years smoked: 49 Smoking pack-years: 24.50 Smoking status: Current every day smoker Tobacco type: cigarettes Second hand tobacco smoke exposure: Yes Alcohol intake: current Drinks per week: 1 Alcohol use details: Patient drinks 1 glass of wine per month Substance use: never Substance use type: does not use Lack of Transportation: No Lack of Food: Never True Current Housing: I Have Housing Concerned About Future Housing: No Difficulty Paying Gas/Electric Bills: No Difficulty Paying for Meds: No
[2022-05-20] MEDS: ACETAMINOPHEN 325 MG TABLET 650 MG PO (03:31)
[2022-05-20] MEDS: ONDANSETRON INJ 4 MG/2 ML VIAL IV PUSH (03:32)
[2022-05-20 04:17] LABS: Influenza A QL RT-PCR Negative (Negative); Influenza B QL RT-PCR Negative (Negative); RSV RNA, RT-PCR Negative (Negative); SARS-CoV-2 RNA PCR Negative
--- NOTE | 2022-05-20 05:40 | ADMGEN ---
This patient, Anahi Vazquez, was admitted to [facility] Surg Room 306-01. Patient/family oriented to hospital policies and general routines including ID bracelet, bed and alarms, visiting hours, pain management, procedures, bathroom and other care routines, personal items, smoking policy, room service/diet, and visiting hours. Information on how to activate the Rapid Response Team has been discussed. Patient/Family are encouraged to report perceived risks to care and to ask questions if they do not understand what they are told or what they should do.
[2022-05-20] MEDS: HYDROcodone/acetaminophen (*CRX) 5-325 MG TABLET 1 TAB PO ×3 (06:23→16:55)
--- NOTE | 2022-05-20 08:36 | PM.IMHP ---
H&P: HPI History of Present Illness Date/Time: 05/20/22 08:36 Chief Complaint: Dizziness Narrative: Anahi Vazquez is a 67 yo female with history of [id number] diabetes, hypertension, hyperlipidemia, GERD, and recent hospitalization for pneumonia at our facility on 05/03/22 to 05/05/22. She presented to the ED for evaluation of dizziness for approximately 2 days, but worse yesterday, prior to admission. She reports the dizziness is worsened with position changes. Yesterday, her vision turned black and she thought she would pass out. She feels like the room is spinning. She reports the dizziness is associated with diaphoresis. Additionally, she reports episodes of substernal chest pressure that does not radiate and not associated with dizzy episodes. She c/o belching, nausea without emesis, decreased appetite and oral intake, as well as weakness to both shoulders and ALICIA. She has chronic back pain. She denies paresthesia, abdominal pain, fever, chills, cough, or sputum. She started Wellbutrin and nicotine patch on 05/12/22, but denies any other medications changes or over the counter medications. She has had no sick contacts. In the ED, her vitals were HR 102, RR 20, Temp 97.8F, spO2 98% 1L. Orthostatic BP was positive with a drop from 136/67 and HR 98 sitting to BP 112/86 and HR 93 standing. Lab work showed sodium 130, K 3.1, creatinine 1.3, BUN 12, glucose 116, but otherwise normal CBC and CMP. EKG showed sinus tachycardia with possible left atrial enlargement, but no ischemic changes. Chest x-ray was negative for acute infection. PCR SARS-COV2, influenza A/B and RSV were negative. She was given 1 liter of normal saline and referred for management of dizziness. Review of Systems Review of Systems: All systems reviewed & are unremarkable except as noted in HPI and below PMFSH Past Medical History Medical History (Updated 05/20/22 @ 18:14 by Betzaida Zepeda, EZRA) Diabetes GERD (gastroesophageal reflux disease) Goiter High cholesterol History of DVT (deep vein thrombosis) History of hyperbaric oxygen therapy (~1989) HTN (hypertension) Osteoarthritis Skin graft (allograft) (autograft) failure Tobacco dependence Venous stasis ulcers Surgical History Surgical History H/O: hysterectomy (~1979) History of skin graft Several skin grafts between 5985-2463 History of tubal ligation (~1976) Family History Family History Father , 91 Diabetes mellitus DVT (deep venous thrombosis) Heart problem Mother , 87 Heart problem Alzheimer disease Brain bleed Sibling , 58 Heart attack Social History Social History Social History: The patient lives home by herself she is . She has 2 children. Patient drinks 4 cups of caffeine daily. She is retired from [employer]. Her daughter is the durable power estate attorney for healthcare. Code status full code Smoking packs per day: 0.5 Smoking cigarettes per day: 10.0 Years smoked: 50 Smoking pack-years: 25.00 Smoking status: Current every day smoker Tobacco type: cigarettes Second hand tobacco smoke exposure: Yes Alcohol intake: current Drinks per week: 1 Alcohol use details: Patient drinks 1 glass of wine per month Substance use: never Substance use type: does not use Lack of Transportation: No Lack of Food: Never True Current Housing: I Do Not Have Housing Concerned About Future Housing: No Difficulty Paying Gas/Electric Bills: No Difficulty Paying for Meds: YES Currently Unemployed: No Education: High School Diploma/GED Difficulty w/ Childcare or Family Care: No Additional living arrangements comments: Patient is Gender identity (if verbalized by the patient): Female Spiritual care concerns: No Meds Home Medic
[2022-05-20] MEDS: PANTOPRAZOLE 40 MG TABLET PO (09:08)
[2022-05-20] MEDS: buPROPion HCL SR (12 HR) 150 MG TAB PO ×2 (09:08→20:52)
[2022-05-20] MEDS: APIXABAN 2.5 MG TABLET PO ×2 (09:08→20:52)
[2022-05-20] MEDS: DESVENLAFAXINE SUCCINATE 50 MG TAB.ER.24H 100 MG PO (09:08)
[2022-05-20 09:14] LABS: Glucose Point of Care 113 mg/dl (65-105)
[2022-05-20 09:57] LABS: Magnesium 1.7 mg/dL (1.6-2.3)
[2022-05-20] MEDS: POTASSIUM CHLORIDE 20 MEQ TABLET 40 MEQ PO (10:25)
[2022-05-20 11:51] LABS: Glucose Point of Care 166 mg/dl (65-105)
[2022-05-20 13:28] LABS: Hemoglobin A1C 6.8 % (<5.7)
[2022-05-20] MEDS: PERFLUTREN LIPID MICROSPHERES 1.5 ML VIAL DILUTED TO 10 ML TOTAL VOLUME IV PUSH (14:10)
[2022-05-20 16:41] LABS: Glucose Point of Care 117 mg/dl (65-105)
[2022-05-20] MEDS: NICOTINE (*PBKC) 7 MG PATCH 1 PATCH TRANSDERM (19:44)
[2022-05-20] MEDS: SIMVASTATIN 20 MG TABLET 40 MG PO (20:52)
[2022-05-20 21:44] LABS: Glucose Point of Care 107 mg/dl (65-105)
[2022-05-21] VITALS (12 sets, daily range): BP systolic 120–163; BP diastolic 56–69; PULSE 80–101; RESP 14–18; TEMP 36.2–36.5; O2SAT 97–100
[2022-05-21] MEDS: HYDROcodone/acetaminophen (*CRX) 5-325 MG TABLET 1 TAB PO ×5 (00:17→21:21)
[2022-05-21] MEDS: SODIUM CHLORIDE 0.9% IV 1,000 ML 125 ML IV CONT ×3 (02:00→18:49)
[2022-05-21 06:03] LABS: Hematocrit 35.1 % (37.0-47.0); Hemoglobin 11.8 g/dL (12.0-15.0); Mean Corpuscular HGB Conc 33.6 g/dl (32-36); Mean Corpuscular Hemoglobin 30.7 pg (26-34); Mean Corpuscular Volume 91.4 fl (80-100); Mean Platelet Volume 10.7 fl (7.4-10.4); Platelet Count Result 208 k/mm3 (150-375); Red Blood Count 3.84 M/mm3 (4.2-5.4); Red Cell Distribution Width 12.2 % (11.5-14.5); White Blood Count 4.6 K/mm3 (4.5-10.0)
[2022-05-21 06:15] LABS: Alanine Aminotransferase 14 U/L (6-35); Albumin Level 3.7 g/dL (3.5-5.1); Alkaline Phosphatase 56 U/L (38-126); Anion Gap 7 mmol/L (8-16); Aspartate Amino Transferase 20 U/L (14-36); Bilirubin,Total 0.4 mg/dL (0.2-1.3); Blood Urea Nitrogen 8 mg/dL (7-17); Calcium 8.6 mg/dL (8.4-10.2); Carbon Dioxide 28 mmol/L (22-30); Chloride 99 mmol/L (98-107); Estimated CRCL calculation 51 ml/min; Estimated Glomerular Filt Rate 55; Glucose 104 mg/dL (65-110); Potassium 3.2 mmol/L (3.4-5.0); Sodium 134 mmol/L (137-145)
[2022-05-21 08:03] LABS: Glucose Point of Care 121 mg/dl (65-105)
[2022-05-21] MEDS: APIXABAN 2.5 MG TABLET PO ×2 (08:10→21:20)
[2022-05-21] MEDS: DESVENLAFAXINE SUCCINATE 50 MG TAB.ER.24H 100 MG PO (08:10)
[2022-05-21] MEDS: buPROPion HCL SR (12 HR) 150 MG TAB PO ×2 (08:10→21:21)
[2022-05-21] MEDS: NICOTINE (*PBKC) 7 MG PATCH 1 PATCH TRANSDERM (08:11)
[2022-05-21] MEDS: PANTOPRAZOLE 40 MG TABLET PO (08:11)
[2022-05-21] MEDS: FLUTICASONE PROPIONATE 0.05% NA SPR 16 GM BTL (*BKC) 2 SPRAY NASAL (08:11)
--- NOTE | 2022-05-21 09:00 | P.PNIM_ITS ---
Progress Note: A&P Assessment and Plan (1) JUWAN (acute kidney injury): Code(s): N17.9 - Acute kidney failure, unspecified Status: Acute Assessment and Plan: On admission BUN 12, creatinine 1.3, EGFR 41 which is slightly elevated from baseline. * Likely secondary to dehydration and prerenal azotemia especially from diuretic use. * Continue IV hydration * Trend renal function * Replace electrolytes as needed * BUN and Cr trending down * Stable (2) Orthostasis: Code(s): I95.1 - Orthostatic hypotension Status: Acute Assessment and Plan: Patient was noted to have positive orthostatic vitals from sitting to standing position in the ED. this is likely secondary to dehydration from diuretic use especially given elevated renal function as described above. * Continue IV fluids * Trend orthostatic vitals daily * Fall precautions * Telemetry * Compression stockings * Hold antihypertensives. * Echocardiogram without significant valvular disease. * CT head negative for acute findings * H&H and B12 all within normal limits (3) Dizziness: Code(s): R42 - Dizziness and giddiness Status: Acute Assessment and Plan: Likely secondary to orthostatic hypotension from antihypertensives and diuretic use. Continue management as above (4) Acute hypokalemia: Code(s): E87.6 - Hypokalemia Status: Acute Assessment and Plan: Potassium 3.1 on admission. Magnesium 1.7 05/20/22 * Patient given 40 mEq p.o. potassium chloride * Repeat BMP in a.m. and supplement potassium as needed * This is likely secondary to hydrochlorothiazide medication 05/21/22 * K+ 3.2 in the a.m. pt given 40 mEq PO KCl * Repeat labs in the afternoon 3.1, additional 40 mEq K+ given (5) Hyponatremia: Code(s): E87.1 - Hypo-osmolality and hyponatremia Status: Acute Assessment and Plan: Patient noted to have sodium level 130 on admission this is likely secondary to hypovolemia hyponatremia as evidence by elevated renal function and orthostatic hypotension. * Patient is on hydrochlorothiazide diuretic at home which is likely cont ributing. * Hold diuretics. * Continue NS IV fluids * Trend sodium level * Monitor neuro status * stable (6) Diabetes mellitus: Qualifiers: Diabetes mellitus complication detail: with other skin complication Diabetes mellitus complication status: with skin complications Diabetes mellitus custodial insulin use: without custodial use Diabetes mellitus type: type 2 Qualified Code(s): E11.628 - Type 2 diabetes mellitus with other skin complications Code(s): E11.9 - Type 2 diabetes mellitus without complications Status: Chronic Assessment and Plan: Chronic, A1c 6.8% and stable from 01/23 * Continue consistent carb diet * Monitor glucose a.c. HS and add NovoLog sliding scale insulin low-dose with hypoglycemic protocol * Hold glipizide, rybelsus, and Actos while inpatient (7) HTN (hypertension): Qualifiers: Hypertension type: primary hypertension Qualified Code(s): I10 - Essential (primary) hypertension Code(s): I10 - Essential (primary) hypertension Status: Chronic Assessment and Plan: Chronic, BP stable a given orthostatic hypotension will hold antihypertensives at this time. Patient may not need all medications resumed at discharge but will continue to monitor and a
--- NOTE | 2022-05-21 09:00 | PM.IMPN ---
Progress Note: A&P Assessment and Plan (1) JUWAN (acute kidney injury): Code(s): N17.9 - Acute kidney failure, unspecified Status: Acute Assessment and Plan: On admission BUN 12, creatinine 1.3, EGFR 41 which is slightly elevated from baseline. Likely secondary to dehydration and prerenal azotemia especially from diuretic use. Continue IV hydration Trend renal function Replace electrolytes as needed BUN and Cr trending down Stable (2) Orthostasis: Code(s): I95.1 - Orthostatic hypotension Status: Acute Assessment and Plan: Patient was noted to have positive orthostatic vitals from sitting to standing position in the ED. this is likely secondary to dehydration from diuretic use especially given elevated renal function as described above. Continue IV fluids Trend orthostatic vitals daily Fall precautions Telemetry Compression stockings Hold antihypertensives. Echocardiogram without significant valvular disease. CT head negative for acute findings H&H and B12 all within normal limits (3) Dizziness: Code(s): R42 - Dizziness and giddiness Status: Acute Assessment and Plan: Likely secondary to orthostatic hypotension from antihypertensives and diuretic use. Continue management as above (4) Acute hypokalemia: Code(s): E87.6 - Hypokalemia Status: Acute Assessment and Plan: Potassium 3.1 on admission. Magnesium 1.7 05/20/22 Patient given 40 mEq p.o. potassium chloride Repeat BMP in a.m. and supplement potassium as needed This is likely secondary to hydrochlorothiazide medication 05/21/22 K+ 3.2 in the a.m. pt given 40 mEq PO KCl Repeat labs in the afternoon 3.1, additional 40 mEq K+ given (5) Hyponatremia: Code(s): E87.1 - Hypo-osmolality and hyponatremia Status: Acute Assessment and Plan: Patient noted to have sodium level 130 on admission this is likely secondary to hypovolemia hyponatremia as evidence by elevated renal function and orthostatic hypotension. Patient is on hydrochlorothiazide diuretic at home which is likely contributing. Hold diuretics. Continue NS IV fluids Trend sodium level Monitor neuro status stable (6) Diabetes mellitus: Qualifiers: Diabetes mellitus complication detail: with other skin complication Diabetes mellitus complication status: with skin complications Diabetes mellitus expansion envelope maker hand insulin use: without intermediate use Diabetes mellitus type: type 2 Qualified Code(s): E11.628 - Type 2 diabetes mellitus with other skin complications Code(s): E11.9 - Type 2 diabetes mellitus without complications Status: Chronic Assessment and Plan: Chronic, A1c 6.8% and stable from 01/23 Continue consistent carb diet Monitor glucose a.c. HS and add NovoLog sliding scale insulin low-dose with hypoglycemic protocol Hold glipizide, rybelsus, and Actos while inpatient (7) HTN (hypertension): Qualifiers: Hypertension type: primary hypertension Qualified Code(s): I10 - Essential (primary) hypertension Code(s): I10 - Essential (primary) hypertension Status: Chronic Assessment and Plan: Chronic, BP stable a given orthostatic hypotension will hold antihypertensives at this time. Patient may not need all medications resumed at discharge but will continue to monitor and adjust closer to discharge (8) GERD (gastroesophageal reflux disease): Qualifiers: Esophagitis presence: without esophagitis Qualified Code(s): K21.9 - Gastro-esophageal reflux disease without esophagitis Code(s): K21.9 - Gastro-esophageal reflux disease without esophagitis Status: Chronic Assessment and Plan: Patient has mild epigastric pain on exam and does endorse at chest pain associated with belching and nausea. Continue PPI and p.r.n. Tums This may be exacerbate
[2022-05-21 11:49] LABS: Glucose Point of Care 97 mg/dl (65-105)
[2022-05-21] MEDS: POTASSIUM CHLORIDE 20 MEQ PACKET (FOR LIQUID) PO (12:01)
[2022-05-21 14:19] LABS: Potassium 3.1 mmol/L (3.4-5.0)
[2022-05-21] MEDS: POTASSIUM CHLORIDE 20 MEQ PACKET (FOR LIQUID) 40 MEQ PO (16:13)
[2022-05-21 16:51] LABS: Glucose Point of Care 120 mg/dl (65-105)
[2022-05-21 20:50] LABS: Glucose Point of Care 111 mg/dl (65-105)
[2022-05-21] MEDS: SIMVASTATIN 20 MG TABLET 40 MG PO (21:20)
[2022-05-22] VITALS (11 sets, daily range): BP systolic 133–163; BP diastolic 56–70; PULSE 73–99; RESP 14–18; TEMP 36.4–36.8; O2SAT 97–99
[2022-05-22] MEDS: HYDROcodone/acetaminophen (*CRX) 5-325 MG TABLET 1 TAB PO ×4 (01:59→21:00)
[2022-05-22] MEDS: SODIUM CHLORIDE 0.9% IV 1,000 ML 125 ML IV CONT ×2 (03:09→10:28)
[2022-05-22 05:37] LABS: Hematocrit 33.5 % (37.0-47.0); Hemoglobin 11.2 g/dL (12.0-15.0); Mean Corpuscular HGB Conc 33.4 g/dl (32-36); Mean Corpuscular Hemoglobin 30.4 pg (26-34); Mean Corpuscular Volume 90.8 fl (80-100); Mean Platelet Volume 10.2 fl (7.4-10.4); Platelet Count Result 190 k/mm3 (150-375); Red Blood Count 3.69 M/mm3 (4.2-5.4); Red Cell Distribution Width 12.4 % (11.5-14.5); White Blood Count 4.5 K/mm3 (4.5-10.0)
[2022-05-22 05:48] LABS: Alanine Aminotransferase 14 U/L (6-35); Albumin Level 3.6 g/dL (3.5-5.1); Alkaline Phosphatase 53 U/L (38-126); Anion Gap 5 mmol/L (8-16); Aspartate Amino Transferase 20 U/L (14-36); Bilirubin,Total 0.3 mg/dL (0.2-1.3); Blood Urea Nitrogen 4 mg/dL (7-17); Carbon Dioxide 28 mmol/L (22-30); Chloride 102 mmol/L (98-107); Estimated CRCL calculation 56 ml/min; Estimated Glomerular Filt Rate > 60; Glucose 102 mg/dL (65-110); Potassium 3.2 mmol/L (3.4-5.0); Sodium 135 mmol/L (137-145)
[2022-05-22 08:09] LABS: Glucose Point of Care 104 mg/dl (65-105)
--- NOTE | 2022-05-22 09:00 | P.PNIM_ITS ---
Progress Note: A&P Assessment and Plan (1) JUWAN (acute kidney injury): Code(s): N17.9 - Acute kidney failure, unspecified Status: Acute Assessment and Plan: On admission BUN 12, creatinine 1.3, EGFR 41 which is slightly elevated from baseline. * Likely secondary to dehydration and prerenal azotemia especially from diuretic use. * Continue IV hydration * Trend renal function * Replace electrolytes as needed * BUN and Cr trending down * Stable (2) Orthostasis: Code(s): I95.1 - Orthostatic hypotension Status: Acute Assessment and Plan: Patient was noted to have positive orthostatic vitals from sitting to standing position in the ED. this is likely secondary to dehydration from diuretic use especially given elevated renal function as described above. * Continue IV fluids * Trend orthostatic vitals daily * Fall precautions * Telemetry * Compression stockings * Hold antihypertensives. * Echocardiogram without significant valvular disease. * CT head negative for acute findings * H&H and B12 all within normal limits * 05/21/22 patient continuing to have positive orthostatics 05/22/22 * Orthostatics are still positive after fluid resusitation and diuretic restriction * Will try trial of midodrine 2.5 mg tid (3) Dizziness: Code(s): R42 - Dizziness and giddiness Status: Acute Assessment and Plan: Likely secondary to orthostatic hypotension from antihypertensives and diuretic use. Continue management as above (4) Acute hypokalemia: Code(s): E87.6 - Hypokalemia Status: Acute Assessment and Plan: Potassium 3.1 on admission. Magnesium 1.7 05/20/22 * Patient given 40 mEq p.o. potassium chloride * Repeat BMP in a.m. and supplement potassium as needed * This is likely secondary to hydrochlorothiazide medication 05/21/22 * K+ 3.2 in the a.m. pt given 40 mEq PO KCl * Repeat labs in the afternoon 3.1, additional 40 mEq K+ given 05/22/22 * Patient given 40 meq K this morning, repeat K 3.9 * Mg 1.4, given 2 g IV Mg sulfate and will recheck in the AM (5) Hyponatremia: Code(s): E87.1 - Hypo-osmolality and hyponatremia Status: Acute Assessment and Plan: Patient noted to have sodium level 130 on admission this is likely secondary to hypovolemia hyponatremia as evidence by elevated renal function and orthostatic hypotension. * Patient is on hydrochlorothiazide diuretic at home which is likely contributing. * Hold diuretics. * Continue NS IV fluids * Trend sodium level * Monitor neuro status * stable (6) Diabetes mellitus: Qualifiers: Diabetes mellitus complication detail: with other skin complication Diabetes mellitus complication status: with skin complications Diabetes mellitus penitentiary insulin use: without terminal operations supervisor use Diabetes mellitus type: type 2 Qualified Code(s): E11.628 - Type 2 diabetes mellitus with other skin complications Code(s): E11.9 - Type 2 diabetes mellitus without complications Status: Chronic Assessment and Plan: Chronic, A1c 6.8% and stable from 01/23 * Continue consistent carb diet * Monitor glucose a.c. HS and add NovoLog sliding scale insulin low-dose with hypoglycemic protocol * Hold glipizide, rybelsus, and Actos while inpatient (7) HTN (hypertension): Qualifiers: Hypertension type: primary hypertension Qualified Code(s): I10 - Ess
--- NOTE | 2022-05-22 09:00 | PM.IMPN ---
Progress Note: A&P Assessment and Plan (1) JUWAN (acute kidney injury): Code(s): N17.9 - Acute kidney failure, unspecified Status: Acute Assessment and Plan: On admission BUN 12, creatinine 1.3, EGFR 41 which is slightly elevated from baseline. Likely secondary to dehydration and prerenal azotemia especially from diuretic use. Continue IV hydration Trend renal function Replace electrolytes as needed BUN and Cr trending down Stable (2) Orthostasis: Code(s): I95.1 - Orthostatic hypotension Status: Acute Assessment and Plan: Patient was noted to have positive orthostatic vitals from sitting to standing position in the ED. this is likely secondary to dehydration from diuretic use especially given elevated renal function as described above. Continue IV fluids Trend orthostatic vitals daily Fall precautions Telemetry Compression stockings Hold antihypertensives. Echocardiogram without significant valvular disease. CT head negative for acute findings H&H and B12 all within normal limits 05/21/22 patient continuing to have positive orthostatics 05/22/22 Orthostatics are still positive after fluid resusitation and diuretic restriction Will try trial of midodrine 2.5 mg tid (3) Dizziness: Code(s): R42 - Dizziness and giddiness Status: Acute Assessment and Plan: Likely secondary to orthostatic hypotension from antihypertensives and diuretic use. Continue management as above (4) Acute hypokalemia: Code(s): E87.6 - Hypokalemia Status: Acute Assessment and Plan: Potassium 3.1 on admission. Magnesium 1.7 05/20/22 Patient given 40 mEq p.o. potassium chloride Repeat BMP in a.m. and supplement potassium as needed This is likely secondary to hydrochlorothiazide medication 05/21/22 K+ 3.2 in the a.m. pt given 40 mEq PO KCl Repeat labs in the afternoon 3.1, additional 40 mEq K+ given 05/22/22 Patient given 40 meq K this morning, repeat K 3.9 Mg 1.4, given 2 g IV Mg sulfate and will recheck in the AM (5) Hyponatremia: Code(s): E87.1 - Hypo-osmolality and hyponatremia Status: Acute Assessment and Plan: Patient noted to have sodium level 130 on admission this is likely secondary to hypovolemia hyponatremia as evidence by elevated renal function and orthostatic hypotension. Patient is on hydrochlorothiazide diuretic at home which is likely contributing. Hold diuretics. Continue NS IV fluids Trend sodium level Monitor neuro status stable (6) Diabetes mellitus: Qualifiers: Diabetes mellitus complication detail: with other skin complication Diabetes mellitus complication status: with skin complications Diabetes mellitus termite treater helper insulin use: without [facility] use Diabetes mellitus type: type 2 Qualified Code(s): E11.628 - Type 2 diabetes mellitus with other skin complications Code(s): E11.9 - Type 2 diabetes mellitus without complications Status: Chronic Assessment and Plan: Chronic, A1c 6.8% and stable from 01/23 Continue consistent carb diet Monitor glucose a.c. HS and add NovoLog sliding scale insulin low-dose with hypoglycemic protocol Hold glipizide, rybelsus, and Actos while inpatient (7) HTN (hypertension): Qualifiers: Hypertension type: primary hypertension Qualified Code(s): I10 - Essential (primary) hypertension Code(s): I10 - Essential (primary) hypertension Status: Chronic Assessment and Plan: Chronic, BP stable a given orthostatic hypotension will hold antihypertensives at this time. Patient may not need all medications resumed at discharge but will continue to monitor and adjust closer to discharge (8) GERD (gastroesophageal reflux disease): Qualifiers: Esophagitis presence: without esophagitis Qualified Code(s): K21.9 - Gastro-esophageal reflux disea
[2022-05-22] MEDS: DESVENLAFAXINE SUCCINATE 50 MG TAB.ER.24H 100 MG PO (09:03)
[2022-05-22] MEDS: APIXABAN 2.5 MG TABLET PO ×2 (09:04→20:59)
[2022-05-22] MEDS: PANTOPRAZOLE 40 MG TABLET PO ×2 (09:04→20:59)
[2022-05-22] MEDS: FLUTICASONE PROPIONATE 0.05% NA SPR 16 GM BTL (*BKC) 2 SPRAY NASAL (09:04)
[2022-05-22] MEDS: NICOTINE (*PBKC) 7 MG PATCH 1 PATCH TRANSDERM (09:04)
[2022-05-22] MEDS: buPROPion HCL SR (12 HR) 150 MG TAB PO ×2 (09:04→20:59)
[2022-05-22] MEDS: POTASSIUM CHLORIDE 20 MEQ PACKET (FOR LIQUID) 40 MEQ PO (10:24)
--- NOTE | 2022-05-22 11:28 | ECG_ITS ---
Measurements Intervals [place] Rate: 77 P: 17 WA: 139 QRS: 22 QRSD: 107 T: 102 QT: 444 QTc: 504 Interpretive Statements SINUS RHYTHM LOW QRS VOLTAGE IN PRECORDIAL LEADS MINIMAL Q WAVES- INFERIOR LEADS ST-T WAVE ABNORMALITY IN ANTERIOR LEADS- CONSIDER ISCHEMIA BASELINE ARTIFACT- I, II, AVR ABNORMAL ECG COMPARED TO ECG 05/19/2022 19:38:35 SINUS RHYTHM NOW PRESENT ST-T WAVE ABNORMALITY NOW PRESENT Electronically Signed On 05-22-2022 12:12:04 CIGARETTE MAKING MACHINE CATCHER by Terry Humphreys D.O.
[2022-05-22 12:09] LABS: Glucose Point of Care 110 mg/dl (65-105)
[2022-05-22 13:53] LABS: Magnesium 1.4 mg/dL (1.6-2.3); Potassium 3.9 mmol/L (3.4-5.0)
[2022-05-22] MEDS: MAGNESIUM SULF 2 GM/WATER 50ML 2 GM/50 ML BAG IVPB (15:45)
[2022-05-22 17:12] LABS: Glucose Point of Care 124 mg/dl (65-105)
[2022-05-22] MEDS: MIDODRINE HCL 2.5 MG TABLET PO (17:49)
[2022-05-22 20:41] LABS: Glucose Point of Care 143 mg/dl (65-105)
[2022-05-22] MEDS: SIMVASTATIN 20 MG TABLET 40 MG PO (21:00)
[2022-05-23] VITALS: BP 151/55; PULSE 89; PULSE 91; RESP 16; TEMP 36.3; O2SAT 96
[2022-05-23] MEDS: HYDROcodone/acetaminophen (*CRX) 5-325 MG TABLET 1 TAB PO ×4 (03:47→17:17)
[2022-05-23 04:00] VITALS: BP 156/74; PULSE 100; PULSE 72; RESP 16; TEMP 36.2; O2SAT 97
[2022-05-23 06:47] LABS: Hematocrit 34.6 % (37.0-47.0); Hemoglobin 11.4 g/dL (12.0-15.0); Mean Corpuscular HGB Conc 32.9 g/dl (32-36); Mean Corpuscular Hemoglobin 30.2 pg (26-34); Mean Corpuscular Volume 91.5 fl (80-100); Mean Platelet Volume 10.3 fl (7.4-10.4); Platelet Count Result 192 k/mm3 (150-375); Red Blood Count 3.78 M/mm3 (4.2-5.4); Red Cell Distribution Width 12.3 % (11.5-14.5); White Blood Count 4.6 K/mm3 (4.5-10.0)
[2022-05-23 07:00] LABS: Alanine Aminotransferase 13 U/L (6-35); Albumin Level 3.5 g/dL (3.5-5.1); Alkaline Phosphatase 51 U/L (38-126); Anion Gap 5 mmol/L (8-16); Aspartate Amino Transferase 20 U/L (14-36); Bilirubin,Total 0.4 mg/dL (0.2-1.3); Blood Urea Nitrogen 6 mg/dL (7-17); Calcium 8.4 mg/dL (8.4-10.2); Carbon Dioxide 29 mmol/L (22-30); Chloride 99 mmol/L (98-107); Estimated CRCL calculation 56 ml/min; Estimated Glomerular Filt Rate > 60; Glucose 115 mg/dL (65-110); Magnesium 1.5 mg/dL (1.6-2.3); Potassium 3.2 mmol/L (3.4-5.0); Sodium 133 mmol/L (137-145)
[2022-05-23 08:00] VITALS: PULSE 80
[2022-05-23 08:23] LABS: Glucose Point of Care 120 mg/dl (65-105)
[2022-05-23] MEDS: MIDODRINE HCL 2.5 MG TABLET PO ×3 (08:44→17:17)
[2022-05-23] MEDS: FLUTICASONE PROPIONATE 0.05% NA SPR 16 GM BTL (*BKC) 2 SPRAY NASAL (08:44)
[2022-05-23] MEDS: DESVENLAFAXINE SUCCINATE 50 MG TAB.ER.24H 100 MG PO (08:44)
[2022-05-23] MEDS: APIXABAN 2.5 MG TABLET PO (08:44)
[2022-05-23] MEDS: buPROPion HCL SR (12 HR) 150 MG TAB PO (08:44)
[2022-05-23] MEDS: PANTOPRAZOLE 40 MG TABLET PO (08:44)
[2022-05-23] MEDS: NICOTINE (*PBKC) 7 MG PATCH 1 PATCH TRANSDERM (08:45)
[2022-05-23] MEDS: polyethylene glycoL 3350 17 GM POWD.PACK PO (08:47)
[2022-05-23 09:45] VITALS: BP 152/71; PULSE 93; RESP 16; TEMP 36.7; O2SAT 99
[2022-05-23] MEDS: POTASSIUM CHLORIDE 20 MEQ PACKET (FOR LIQUID) PO (10:48)
[2022-05-23 11:46] LABS: Glucose Point of Care 117 mg/dl (65-105)
[2022-05-23 12:00] VITALS: PULSE 71
[2022-05-23 14:45] VITALS: BP 143/68; PULSE 77; RESP 16; TEMP 36.6; O2SAT 100
--- NOTE | 2022-05-23 15:32 | P.DS_ITS ---
DS: Admitting Diagnosis Discharge Date 05/23/22 Admitting Diagnosis Dizziness DS: Discharge Diagnosis Discharge Diagnosis (1) JUWAN (acute kidney injury): Code(s): N17.9 - Acute kidney failure, unspecified Status: Acute Assessment and Plan: On admission BUN 12, creatinine 1.3, EGFR 41 which is slightly elevated from baseline. * Likely secondary to dehydration and prerenal azotemia especially from diuretic use. * Continue IV hydration * Trend renal function * Replace electrolytes as needed * BUN and Cr trending down * Stable (2) Orthostasis: Code(s): I95.1 - Orthostatic hypotension Status: Acute Assessment and Plan: Patient was noted to have positive orthostatic vitals from sitting to standing position in the ED. this is likely secondary to dehydration from diuretic use especially given elevated renal function as described above. * Continue IV fluids * Trend orthostatic vitals daily * Fall precautions * Telemetry * Compression stockings * Hold antihypertensives. * Echocardiogram without significant valvular disease. * CT head negative for acute findings * H&H and B12 all within normal limits * 05/21/22 patient continuing to have positive orthostatics 05/22/22 * Orthostatics are still positive after fluid resusitation and diuretic restriction * Will try trial of midodrine 2.5 mg tid (3) Dizziness: Code(s): R42 - Dizziness and giddiness Status: Acute Assessment and Plan: Likely secondary to orthostatic hypotension from antihypertensives and diuretic use. Continue management as above (4) Acute hypokalemia: Code(s): E87.6 - Hypokalemia Status: Acute Assessment and Plan: Potassium 3.1 on admission. Magnesium 1.7 05/20/22 * Patient given 40 mEq p.o. potassium chloride * Repeat BMP in a.m. and supplement potassium as needed * This is likely secondary to hydrochlorothiazide medication 05/21/22 * K+ 3.2 in the a.m. pt given 40 mEq PO KCl * Repeat labs in the afternoon 3.1, additional 40 mEq K+ given 05/22/22 * Patient given 40 meq K this morning, repeat K 3.9 * Mg 1.4, given 2 g IV Mg sulfate (5) Hyponatremia: Code(s): E87.1 - Hypo-osmolality and hyponatremia Status: Acute Assessment and Plan: Patient noted to have sodium level 130 on admission this is likely secondary to hypovolemia hyponatremia as evidence by elevated renal function and orthostatic hypotension. * Patient is on hydrochlorothiazide diuretic at home which is likely contributing. * Hold diuretics. * Continue NS IV fluids * Trend sodium level * Monitor neuro status * stable (6) Diabetes mellitus: Qualifiers: Diabetes mellitus complication detail: with other skin complication Diabetes mellitus complication status: with skin complications Diabetes mellitus correction insulin use: without amusement equipment operator use Diabetes mellitus type: type 2 Qualified Code(s): E11.628 - Type 2 diabetes mellitus with other skin complications Code(s): E11.9 - Type 2 diabetes mellitus without complications Status: Chronic Assessment and Plan: Chronic, A1c 6.8% and stable from 01/23 * Continue consistent carb diet * Monitor glucose a.c. HS and add NovoLog sliding scale insulin low-dose with hypoglycemic protocol * Hold glipizide, rybelsus, and Actos while inpatient (7) HTN (hypertension): Qualifiers:
--- NOTE | 2022-05-23 15:32 | PM.DS ---
DS: Admitting Diagnosis Discharge Date 05/23/22 Admitting Diagnosis Dizziness DS: Discharge Diagnosis Discharge Diagnosis (1) JUWAN (acute kidney injury): Code(s): N17.9 - Acute kidney failure, unspecified Status: Acute Assessment and Plan: On admission BUN 12, creatinine 1.3, EGFR 41 which is slightly elevated from baseline. Likely secondary to dehydration and prerenal azotemia especially from diuretic use. Continue IV hydration Trend renal function Replace electrolytes as needed BUN and Cr trending down Stable (2) Orthostasis: Code(s): I95.1 - Orthostatic hypotension Status: Acute Assessment and Plan: Patient was noted to have positive orthostatic vitals from sitting to standing position in the ED. this is likely secondary to dehydration from diuretic use especially given elevated renal function as described above. Continue IV fluids Trend orthostatic vitals daily Fall precautions Telemetry Compression stockings Hold antihypertensives. Echocardiogram without significant valvular disease. CT head negative for acute findings H&H and B12 all within normal limits 05/21/22 patient continuing to have positive orthostatics 05/22/22 Orthostatics are still positive after fluid resusitation and diuretic restriction Will try trial of midodrine 2.5 mg tid (3) Dizziness: Code(s): R42 - Dizziness and giddiness Status: Acute Assessment and Plan: Likely secondary to orthostatic hypotension from antihypertensives and diuretic use. Continue management as above (4) Acute hypokalemia: Code(s): E87.6 - Hypokalemia Status: Acute Assessment and Plan: Potassium 3.1 on admission. Magnesium 1.7 05/20/22 Patient given 40 mEq p.o. potassium chloride Repeat BMP in a.m. and supplement potassium as needed This is likely secondary to hydrochlorothiazide medication 05/21/22 K+ 3.2 in the a.m. pt given 40 mEq PO KCl Repeat labs in the afternoon 3.1, additional 40 mEq K+ given 05/22/22 Patient given 40 meq K this morning, repeat K 3.9 Mg 1.4, given 2 g IV Mg sulfate (5) Hyponatremia: Code(s): E87.1 - Hypo-osmolality and hyponatremia Status: Acute Assessment and Plan: Patient noted to have sodium level 130 on admission this is likely secondary to hypovolemia hyponatremia as evidence by elevated renal function and orthostatic hypotension. Patient is on hydrochlorothiazide diuretic at home which is likely contributing. Hold diuretics. Continue NS IV fluids Trend sodium level Monitor neuro status stable (6) Diabetes mellitus: Qualifiers: Diabetes mellitus complication detail: with other skin complication Diabetes mellitus complication status: with skin complications Diabetes mellitus intermission coordinator insulin use: without intermission coordinator use Diabetes mellitus type: type 2 Qualified Code(s): E11.628 - Type 2 diabetes mellitus with other skin complications Code(s): E11.9 - Type 2 diabetes mellitus without complications Status: Chronic Assessment and Plan: Chronic, A1c 6.8% and stable from 01/23 Continue consistent carb diet Monitor glucose a.c. HS and add NovoLog sliding scale insulin low-dose with hypoglycemic protocol Hold glipizide, rybelsus, and Actos while inpatient (7) HTN (hypertension): Qualifiers: Hypertension type: primary hypertension Qualified Code(s): I10 - Essential (primary) hypertension Code(s): I10 - Essential (primary) hypertension Status: Chronic Assessment and Plan: Chronic, BP stable a given orthostatic hypotension will hold antihypertensives at this time. Patient may not need all medications resumed at discharge but will continue to monitor and adjust closer to discharge (8) GERD (gastroesophageal reflux disease): Qualifiers: Esophagitis presence: without esophagi
== END 2022-05-23 17:40 | disposition home or self-care (01) | DRG 641 ==
LOC: ANHED 05-20 03:40 → ANH3MEDSUR 05-20 04:49
PROVIDERS: Nurse Practitioner Family; Admitting Provider Internal Medicine; Emergency Provider Emergency Medicine; Visit Provider Internal Medicine Critical Care Medicine
DX: E86.0 Dehydration (principal); E87.1 Hypo-osmolality and hyponatremia; I95.1 Orthostatic hypotension; E87.6 Hypokalemia; E11.9 Type 2 diabetes mellitus without complications; E04.9 Nontoxic goiter, unspecified; E78.00 Pure hypercholesterolemia, unspecified; I10 Essential (primary) hypertension; K21.9 Gastro-esophageal reflux disease without esophagitis; M19.90 Unspecified osteoarthritis, unspecified site; F17.210 Nicotine dependence, cigarettes, uncomplicated; Z20.822 Contact with and (suspected) exposure to COVID-19; Z86.718 Personal history of other venous thrombosis and embolism
CPT/HCPCS: 36415; 70450; 71046; 80053; 82607; 82948; 83036; 83690; 83735; 84132; 84484; 85025; 85027; 85610; 85730; 87637; 93005; 96361; 96374; 96375; 97161; 97165; 99285; A9270; C8929; G0378; J2405; J3475; J7030; Q9957

== ENCOUNTER 2024-05-16 12:15 | Outpatient (CLI) | payer MEDICARE, SELFPAY ==
--- NOTE | ~2024-05-16 | XR_ITS ---
XR sacrum coccyx min 2V Ordering provider: Julia Cohen, History: . Coccygeal injury . Comparison: None. FINDINGS: BONES: No acute fracture or dislocation. JOINTS: The sacroiliac joint spaces are normal. Bilateral hip osteoarthritic changes. Degenerative ch anges of the spine. SOFT TISSUES: Normal. IMPRESSION: No acute osseous abnormality sacrum. Reviewed, dictated and finalized at location A. TO DOOR SALESPERSON
--- NOTE | ~2024-05-16 | XR_ITS ---
XR hip LT min 2V Ordering provider: Julia Cohen, History: . Coccygeal injury . Comparison: None. FINDINGS: BONES: No acute fracture or dislocation. HIP JOINT SPACES: Mild to moderate osteoarthritic changes of the left. SACROILIAC JOINT SPACES/LUMBAR SPINE: The sacroiliac joint spaces are normal. Mild degenerative yang es of the visualized lower lumbar spine. PUBIC SYMPHYSIS: Normal. SOFT TISSUES: Normal. IMPRESSION: No acute osseous abnormality pelvis and left hip. Reviewed, dictated and finalized at location A. ECTION AGENT
== END 2024-05-16 12:16 | disposition home or self-care (01) ==
LOC: MICIMG 12:20
PROVIDERS: PCP Internal Medicine; Visit Provider Internal Medicine
DX: S39.92XA Unspecified injury of lower back, initial encounter (principal); X58.XXXA Exposure to other specified factors, initial encounter
CPT/HCPCS: 72220; 73502